=== PATIENT | female | born 1980 | race Caucasian/White ===

== ENCOUNTER → 2017-06-03 10:01 | Outpatient (CLI) | payer OTHER, SELFPAY ==
[2016-11-15 07:44] VITALS: BMI 22.4
[2016-11-15 14:00] VITALS: BP 114/58
[2017-06-03 12:26] LABS: Progesterone Level 39.08 ng/mL (See Comment)
== END ==
PROVIDERS: Visit Provider Obstetrics & Gynecology
DX: N92.6 Irregular menstruation, unspecified (principal)
CPT/HCPCS: 36415; 84144

== ENCOUNTER → 2017-06-29 14:57 | Outpatient (CLI) | payer OTHER, SELFPAY ==
[2017-06-29 16:31] LABS: Progesterone Level 4.31 ng/mL (See Comment)
== END ==
PROVIDERS: Visit Provider Obstetrics & Gynecology
DX: N92.6 Irregular menstruation, unspecified (principal)
CPT/HCPCS: 36415; 84144

== ENCOUNTER → 2017-06-30 18:39 | Outpatient (CLI) | payer OTHER, SELFPAY ==
--- NOTE | 2017-06-30 19:02 | US_ITS ---
STUDY: ULTRASOUND OF THE FEMALE PELVIS - COMPLETE REASON FOR EXAM: Female, 36 years old. Irregular menses. History of endometriosis. LMP: June 29, 2017. TECHNIQUE: Transabdominal and Transvaginal TECHNICAL QUALITY: Adequate. COMPARISON: None. FINDINGS: The uterus is anteverted and is in a midline position. The uterus measures 8.1 cm x 5.3 cm x 4.1 cm. There there are nabothian cysts of the cervix. The endometrium measures 7.0 mm in thickness, and is hyperechoic. There is no demonstrated endometrial mass. There is no demonstrated myometrial mass. I.U.D. - The patient does not have an I.U.D. The right ovary is visualized. The right ovary measures 4.6 cm x 3.8 cm x 3.6 cm. There is a 3.6 cm x 2.3 cm x 2.5 cm complex cystic mass in the right adnexal region. Septations and low-level echoes are seen within it. This may represent an endometrioma. There is no visualized right adnexal mass or complex lesion. There is normal arterial and normal venous vascularity. The left ovary is visualized. The left ovary measures 4.8 cm x 3.4 cm x 2.4 cm. There is a 1.4 cm x 1.4 cm x 1.2 cm simple cyst. There is no visualized left adnexal mass or complex lesion. There is normal arterial and normal venous vascularity. There is minimal fluid in the cul-de-sac. Polycystic ovary disease: No. US/Pelvic (Non ) IMPRESSION: 3.6 cm x 3.3 cm x 2.5 cm complex cystic mass in the right ovary as described. Endometrioma should be ruled out. Electronically Signed: Ritesh Douglas MD at 9:31 EST Tel [phone], Service support ,
--- NOTE | 2017-06-30 19:27 | US_ITS ---
STUDY: ULTRASOUND OF THE FEMALE PELVIS - COMPLETE REASON FOR EXAM: Female, 36 years old. Irregular menses. History of endometriosis. LMP: June 29, 2017. TECHNIQUE: Transabdominal and Transvaginal TECHNICAL QUALITY: Adequate. COMPARISON: None. FINDINGS: The uterus is anteverted and is in a midline position. The uterus measures 8.1 cm x 5.3 cm x 4.1 cm. There there are nabothian cysts of the cervix. The endometrium measures 7.0 mm in thickness, and is hyperechoic. There is no demonstrated endometrial mass. There is no demonstrated myometrial mass. I.U.D. - The patient does not have an I.U.D. The right ovary is visualized. The right ovary measures 4.6 cm x 3.8 cm x 3.6 cm. There is a 3.6 cm x 2.3 cm x 2.5 cm complex cystic mass in the right adnexal region. Septations and low-level echoes are seen within it. This may represent an endometrioma. There is no visualized right adnexal mass or complex lesion. There is normal arterial and normal venous vascularity. The left ovary is visualized. The left ovary measures 4.8 cm x 3.4 cm x 2.4 cm. There is a 1.4 cm x 1.4 cm x 1.2 cm simple cyst. There is no visualized left adnexal mass or complex lesion. There is normal arterial and normal venous vascularity. There is minimal fluid in the cul-de-sac. Polycystic ovary disease: No. US/Transvaginal Non- IMPRESSION: 3.6 cm x 3.3 cm x 2.5 cm complex cystic mass in the right ovary as described. Endometrioma should be ruled out. Electronically Signed: Ritesh Douglas MD at 9:31 EST Tel [phone], Service support ,
[2017-06-30 19:45] LABS: hCG Titer Quant., Serum < 1 mIU/mL (<9 non-preg)
== END ==
PROVIDERS: Family Provider Family Medicine; PCP Family Medicine; Visit Provider Obstetrics & Gynecology
DX: N83.201 Unspecified ovarian cyst, right side (principal); N92.6 Irregular menstruation, unspecified
CPT/HCPCS: 76830; 76856; 84702; 93976

== ENCOUNTER → 2017-07-25 18:27 | Outpatient (CLI) | payer OTHER, SELFPAY ==
--- NOTE | 2017-07-25 18:30 | US_ITS ---
STUDY: ULTRASOUND OF THE FEMALE PELVIS - COMPLETE REASON FOR EXAM: Female, 36 years old. Right ovary cyst LMP: 07/22/2017 TECHNIQUE: Transabdominal and Transvaginal TECHNICAL QUALITY: Adequate. COMPARISON: 06/30/2017 FINDINGS: The uterus is anteverted and is in a midline position. The uterus measures 7.4 x 5.9 x 3.7 cm. There is a Nabothian cyst of the cervix. The endometrium measures 4 mm in thickness, and is hyperechoic. There is no demonstrated endometrial mass. There is no demonstrated myometrial mass. I.U.D. - The patient does not have an I.U.D. The right ovary is visualized. The right ovary measures 4.9 x 3.8 x 2.9 cm. Stable complex cyst measuring 3.6 x 2.8 x 1.7 cm. There is no visualized right adnexal mass or complex lesion. There is normal arterial and normal venous vascularity. The left ovary is visualized. The left ovary measures 3.4 x 2.3 x 1.9 cm. Stable simple cyst measuring 1.8 x 1.3 x 1.2 cm. There is no visualized left adnexal mass or complex lesion. There is normal arterial and normal venous vascularity. Mild free pelvic fluid. The pre void volume of the bladder was 276 ml. The post void volume of the bladder was ml. Polycystic ovary disease: No. US/Pelvic (Non ) IMPRESSION: Stable complex right ovary cyst measuring up to 3.6 cm. Stable simple left ovary cyst measuring up to 1.8 cm. Mild free pelvic fluid. Electronically Signed: Marquise Maya MD at 5:14 EDT Tel , Service support ,
--- NOTE | 2017-07-25 18:40 | US_ITS ---
STUDY: ULTRASOUND OF THE FEMALE PELVIS - COMPLETE REASON FOR EXAM: Female, 36 years old. Right ovary cyst LMP: 07/22/2017 TECHNIQUE: Transabdominal and Transvaginal TECHNICAL QUALITY: Adequate. COMPARISON: 06/30/2017 FINDINGS: The uterus is anteverted and is in a midline position. The uterus measures 7.4 x 5.9 x 3.7 cm. There is a Nabothian cyst of the cervix. The endometrium measures 4 mm in thickness, and is hyperechoic. There is no demonstrated endometrial mass. There is no demonstrated myometrial mass. I.U.D. - The patient does not have an I.U.D. The right ovary is visualized. The right ovary measures 4.9 x 3.8 x 2.9 cm. Stable complex cyst measuring 3.6 x 2.8 x 1.7 cm. There is no visualized right adnexal mass or complex lesion. There is normal arterial and normal venous vascularity. The left ovary is visualized. The left ovary measures 3.4 x 2.3 x 1.9 cm. Stable simple cyst measuring 1.8 x 1.3 x 1.2 cm. There is no visualized left adnexal mass or complex lesion. There is normal arterial and normal venous vascularity. Mild free pelvic fluid. The pre void volume of the bladder was 276 ml. The post void volume of the bladder was ml. Polycystic ovary disease: No. US/Transvaginal Non- IMPRESSION: Stable complex right ovary cyst measuring up to 3.6 cm. Stable simple left ovary cyst measuring up to 1.8 cm. Mild free pelvic fluid. Electronically Signed: Marquise Maya MD at 5:14 EDT Tel , Service support ,
== END ==
PROVIDERS: Family Provider Family Medicine; PCP Family Medicine; Visit Provider Obstetrics & Gynecology
DX: N83.201 Unspecified ovarian cyst, right side (principal); N83.292 Other ovarian cyst, left side
CPT/HCPCS: 76830; 76856; 93976

== ENCOUNTER → 2017-08-23 16:36 | Outpatient (CLI) | payer OTHER, SELFPAY ==
--- NOTE | 2017-08-23 16:45 | US_ITS ---
STUDY: ULTRASOUND OF THE FEMALE PELVIS - COMPLETE REASON FOR EXAM: Female, 37 years old. Ovarian cyst TECHNIQUE: Transvaginal TECHNICAL QUALITY: Adequate. COMPARISON: 07/25/2017 FINDINGS: The uterus is anteverted and is in a midline position. The uterus measures 6.7 x 5.5 x 4.1 cm. Normal uterine cervix. The endometrium measures 5 mm in thickness, and is hyperechoic. There is no demonstrated endometrial mass. There is no demonstrated myometrial mass. The right ovary is visualized. The right ovary measures 4.7 x 4.0 x 3.2 cm. There is a complex cyst in the right ovary which measures 3.5 x 2.7 x 2.3 cm. This is not significantly changed when compared with the prior exam (previously 3.6 x 2.8 x 1.7 cm). There is no visualized right adnexal mass or complex lesion. There is normal arterial and normal venous vascularity. The left ovary is visualized. The left ovary measures 3.5 x 1.8 x 1.1 cm. There is a subcentimeter simple cyst in the left ovary which is decreased in size when compared with the prior exam. There is no visualized left adnexal mass or complex lesion. There is normal arterial and normal venous vascularity. There is a small amount of fluid in the cul-de-sac. US/Transvaginal Non- IMPRESSION: No significant change in the previously seen complex right ovarian cyst. Continued follow-up or further evaluation with MRI is recommended. Subcentimeter simple cyst in the left ovary which is decreased in size when compared with the prior exam. Small amount of pelvic free fluid. Electronically Signed: Faisal Mast, at 17:27 EDT Tel , Service support ,
== END ==
PROVIDERS: Family Provider Family Medicine; PCP Family Medicine; Visit Provider Obstetrics & Gynecology
DX: N83.292 Other ovarian cyst, left side (principal); N83.291 Other ovarian cyst, right side
CPT/HCPCS: 76830; 93976

== ENCOUNTER → 2017-09-22 14:19 | Outpatient (CLI) | payer OTHER, SELFPAY ==
[2017-09-22 16:13] LABS: hCG Titer Quant., Serum < 1 mIU/mL (<9 non-preg)
[2017-09-22 16:18] LABS: Estradiol 33.9 pg/mL; Free T3 2.6 pg/mL (2.18-3.98); T4 Free Direct 0.97 ng/dL (0.76-1.46); Thyroid Stim Hormone (TSH) 1.74 uIU/mL (0.358-3.74)
[2017-09-23 12:16] LABS: Progesterone Level 1.08 ng/mL (See Comment)
== END ==
PROVIDERS: Visit Provider Obstetrics & Gynecology
DX: N92.5 Other specified irregular menstruation (principal)
CPT/HCPCS: 36415; 82670; 84144; 84439; 84443; 84481; 84702

== ENCOUNTER → 2017-10-13 10:20 | Outpatient (CLI) | payer OTHER, SELFPAY ==
[2017-10-14 10:04] LABS: Progesterone Level 18.47 ng/mL (See Comment)
== END ==
PROVIDERS: Visit Provider Obstetrics & Gynecology
DX: N97.0 Female infertility associated with anovulation (principal)
CPT/HCPCS: 36415; 84144

== ENCOUNTER → 2017-11-10 10:11 | Outpatient (CLI) | payer OTHER, SELFPAY ==
[2017-11-11 08:27] LABS: Progesterone Level 16.93 ng/mL (See Comment)
== END ==
PROVIDERS: Visit Provider Obstetrics & Gynecology
DX: N97.0 Female infertility associated with anovulation (principal)
CPT/HCPCS: 36415; 84144

== ENCOUNTER → 2017-11-22 14:03 | Outpatient (CLI) | payer OTHER, SELFPAY | PROVIDERS: Visit Provider Obstetrics & Gynecology | DX: N39.0 Urinary tract infection, site not specified (principal) | CPT/HCPCS: 87086; 87088 ==

== ENCOUNTER → 2017-12-10 14:18 | Outpatient (CLI) | payer OTHER, SELFPAY ==
[2017-12-12 09:31] LABS: Progesterone Level 9.12 ng/mL (See Comment)
== END ==
PROVIDERS: Family Provider Family Medicine; PCP Family Medicine; Visit Provider Obstetrics & Gynecology
DX: N97.0 Female infertility associated with anovulation (principal)
CPT/HCPCS: 36415; 84144

== ENCOUNTER → 2018-01-12 14:47 | Outpatient (CLI) | payer OTHER, SELFPAY ==
[2018-01-12 16:12] LABS: Estradiol 45.7 pg/mL
[2018-01-16 10:49] LABS: DHEA Sulfate 163.8 ug/dL (57.3-279.2)
== END ==
PROVIDERS: Family Provider Family Medicine; PCP Family Medicine; Visit Provider Obstetrics & Gynecology Reproductive Endocrinology
DX: N91.4 Secondary oligomenorrhea (principal); E22.1 Hyperprolactinemia
CPT/HCPCS: 36415; 82627; 82670; 83001; 82626

== ENCOUNTER → 2018-02-16 15:22 | Outpatient (CLI) | payer OTHER, SELFPAY ==
--- OUTSIDE RECORDS SUMMARY | 2018-02-15 16:55 | XMS RPT_ITS ---
:1980 Author Organization [place] Support Name Relationship Address Phone Nicolas Randle Unavailable Unavailable + WeygracheltKvngSelene Unavailable Unavailable + Nicolas Randle Unavailable Unavailable + Weygandt, Selene Unavailable Unavailable + JON RANDLE Unavailable [address] + [place] [address] 'S RESTAURANT Unavailable [address] + [place] [address] WEYGRACHELT, SELENE Unavailable Unavailable + [place] [address] JON RANDLE Unavailable [address] + [place] [address] 'S RESTAURANT Unavailable [address] + [place] [address] WEYGRACHELT, SELENE Unavailable Unavailable + [place] [address] JON RANDLE Unavailable [address] + [place] [address] 'S RESTAURANT Unavailable [address] + [place] [address] WEYGRACHELT, SELENE Unavailable Unavailable + [place] [address] JON RANDLE Unavailable [address] + [place] [address] 'S RESTAURANT Unavailable [address] + [place] [address] MAURICIOYGRACHELT, SELENE Unavailable Unavailable + [place] [address] JON RANDLE Unavailable [address] + [place] [address] [employer] Unavailable [address] + [place] [address] WEJAVIERT, SELENE Unavailable Unavailable + [place] [address] JON RANDLE Unavailable [address] + [place] [address] [employer] Unavailable [address] + [place] [address] WEYGRACHELT, SELENE Unavailable Unavailable + [place] [address] JON RANDLE Unavailable [address] + [place] [address] [employer] Unavailable [address] + [place] [address] ESCOBART, SELENE Unavailable Unavailable + [place] [address] JON RANDLE Unavailable [address] + [place] [address] [employer] Unavailable [address] + [place] [address] ESCOBART SELENE Unavailable Unavailable + [place] [address] JON RANDLE Unavailable [address] + [place] [address] [employer] Unavailable [address] + [place] [address] ESCOBART SELENE Unavailable . + [place] [address] JON RANDLE Unavailable [address] + [place] [address] [employer] Unavailable [address] + [place] [address] ESCOBART SELENE Unavailable . + [place] [address] JON RANDLE Unavailable [address] + [place] [address] [employer] Unavailable [address] + [place] [address] ESCOBART SELENE Unavailable . + [place] [address] JON RANDLE Unavailable [address] + [place] [address] 'S RESTAURANT Unavailable [address] + [place] [address] WEYGANDT, SELENE Unavailable . + [place] [address] JON RANDLE Unavailable [address] + [place] [address] [employer] Unavailable [address] + [place] [address] WEYGANDT, SEELNE Unavailable . + [place] [address] Care Team Providers Name Role Phone Steven Lee Attending Unavailable PROVIDER, UNKNOWN Referring Unavailable Malys, Amita Primary Care Unavailable Lee, Steven Attending Unavailable PROVIDER, UNKNOWN Referring Unavailable Malys, Maita Primary Care Unavailable Malys, Amita Attending Unavailable Malys, Amita Primary Care Unavailable Shriner, Luz Elena Attending Unavailable Shriner, Luz Elena Attending Unavailable Shriner, Luz Elena Attending Unavailable Malys, Amita Primary Care Unavailable Shriner, Luz Elena Attending Unavailable Malys, Amita Primary Care Unavailable Shriner, Luz Elena Attending Unavailable Shriner, Luz Elena Referring Unavailable Malys, Amita Primary Care Unavailable Shriner, Luz Elena Attending Unavailable Shriner, Luz Elena Referring Unavailable Malys, Amita Primary Care Unavailable Shriner, Luz Elena Attending Unavailable Shriner, Luz Elena Attending Unavailable Shriner, Luz Elena Attending Unavailable Shriner, Luz Elena Attending Unavailable Shriner, Luz Elena Attending Unavailable Malys, Amita Primary Care Unavailable LEE, STEVEN Attending Unavailable LEE, STEVEN Referring Unavailable Malys, Amita Primary Care Unavailable PROBLEMS PROBLEMS DATE TYPE CONDITION / CODE ATTENDING STATUS SOURCE 01/26/2018 Admitting Endometriosis of Garret, Active [facility] pelvic peritoneum / Steven System N80.3(ICD-10) Repository 01/26/2018 Admitting Unspecified ovarian Lee, Active [facility] Diagnosis cyst, right side / Steven [facility] N83.201(ICD-10) Repository 01/26/2018 Admitting Hypothyroidism, Garret, Active [facility] Diagnosis unspecified / [facility] E03.9(ICD-10) Repository 01/26/2018 Admitting Unspecified asthma, Lee, Active [facility] Diagnosis uncomplicated / [facility] System J45.909(ICD-10) Repository 01/26/2018 Admitting Personal history of Lee, Active [facility] Diagnosis methicillin resis [facility] System staph infection / Repository Z86.14(ICD-10) 01/12/2018 Unknown N91.4 - Secondary LEE, Active [facility] oligomenorrhea / [facility]EVEN Community N91.4(ICD-10) Hospital Repository 11/22/2017 Unknown N39.0 - Urinary Shrmarley, Luz Elena Active [place] tract infection, Community site not specified / Hospital N39.0(ICD-10) Repository 11/10/2017 Unknown 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, 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 Community associated with Hospital anovulation / Repository N97.0(ICD-10) 10/13/2017 Unknown N97.9 - Female Shriner, 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, Community unspecified / Hospital N97.9(ICD-10) Repository 09/22/2017 Unknown N92.5 - Other Shriner, Luz Elena Active [place] specified irregular Community menstruation / Hospital N92.5(ICD-10) Repository 07/25/2017 Unknown N83.201 - Shriner, Luz Elena Active [facility] Unspecified ovarian Community cyst, right side / Hospital N83.201(ICD-10) Repository 06/29/2017 Unknown N92.6 - Irregular Shriner, Luz Elena Active [facility] menstruation, Community unspecified / Hospital N92.6(ICD-10) Repository 02/24/2017 Unknown HYPOTHYROIDISM, Malys, Amita Active [facility] UNSPECIFIED / Community E03.9(ICD-10) Hospital Repository 02/24/2017 Unknown ENCOUNTER FOR Malys, Amita Active [facility] [facility] Community LEVEL MONITORING / Hospital Z51.81(ICD-10) Repository PROCEDURES PROCEDURES No Procedure Records FoundRESULTS RESULTS OP NOTE Observed: 01/26/2018 Status: F [facility] REPOS[facility] PATIENT: DARLINE RANDLE BMEDICAL RECORD #: [id number] DATE: 01/26/2018SURGERY DATE: 01/26/2018ACCOUNT #: [id number] OF : 1980AGE: 37ADMITTING PHYSICIAN: Steven Lee M.D.ATTENDING PHYSICIAN: Steven Lee M.D.DICTATING PHYSICIAN: Viktoriya Centeno MD OPERATIVE RECORDProcedure:1. DIAGNOSTIC LAPAROSCOPY.2. FULGURATION OF ENDOMETRIOSIS AND CHROMOTUBATION.Preoperative Diagnoses:1. Pelvic pain.2. Endometriosis.Postoperative Diagnoses:1. Pelvic pain.2. Endometriosis.Anesthesia: General, ETA, and TAP block.Airline Mechanic: Viktoriya Centeno M.D.Estimated Blood Loss: 10 cc.Intravenous Fluids: 1200 cc crystalloid.Urine: 100 cc.Complications: None apparent.Specimens Removed: None.Findings: Included endometriosis was noted on the bilateraluterosacral ligaments and then the posterior and anterior cul-de-sac.There were right pelvic adhesions noted from the right pelvic sidewallto the right ovary. A right ovarian cyst was also noted, which wasinstantly ruptured. An endometriosis was noted as well on the rightand left pelvic sidewall adjacent to the ureters.Indication for Procedure: This is a 37-year-old female, who presentsfor diagnostic laparoscopy with possible fulguration of endometriosis.The patient has undergone a laparoscopic procedure in 2016, whichshowed evidence of endometriosis. The patient had recurrent pelvicpain and likely recurrence of her endometriosis and the decision wasmade to proceed with a diagnostic laparoscopy and possible surgicalmanagement. Risks, benefits, and alternatives of the procedure werediscussed with the patient including, but not limited to risk ofinjury to surrounding structures, risk of infection, possible need forblood transfusion, risk of hemorrhage as well as the risk of possibleuterine perforation with uterine manipulation. The patient voicedunderstanding and agreed to proceed. Consent was signed and allquestions were answered.Description of Procedure: The patient was taken to the operating roomwith IV fluids running. General anesthesia was administered withoutdifficulty and found to be adequate. The patient was placed in thedorsal lithotomy position with legs in Yellofin stirrups. The patientwas prepped and draped in the normal sterile fashion and a time-outwas performed. Sterile indicators were good. An exam underanesthesia revealed a normal anteverted uterus. Speculum was placedinto the posterior aspect of the vagina. A right angle was placed inthe anterior aspect to better visualize the cervix. The single-toothtenaculum was used to grasp the anterior lip of the cervix. Theuterus sounded to 7 cm. The uterine manipulator was then placed and aFoley catheter was placed. All other instruments were then removedfrom the vagina. Attention was then turned to the abdomen for thelaparoscopic portion of the procedure. Two towel clamps were used toelevate the umbilicus. A small 5 mm umbilical incision was madetransversely. The Veress needle was then inserted and attached toinsufflation and it was determined that the abdominal cavity wasentered. The abdomen was then insufflated with CO2 gas untilpneumoperitoneum was placed. A 5 mm bladed trocar was then insertedthrough the umbilical incision and the camera was inserted.Inspection of the abdominal cavity revealed no evidence of visceral orvascular injury. Attention was then turned to the right and leftlower quadrants and two 5 mm ports were placed in each quadrant underdirect visualization. The pelvis was then inspected as previouslynoted in the findings. Endometriosis was noted in the anterior andposterior cul-de-sacs. Right pelvic adhesions were noted from theright pelvic sidewall to the right ovary. The right ovarian cyst wasalso noted, which was incidentally ruptured during the procedure.There was also noted to be endometriosis overlying the right and leftpelvic sidewalls adjacent to the ureters. The bipolar Kleppingerdevice was then used to fulgurate all areas of endometriosis. Thepelvis was then sufficiently irrigated and closer inspection revealedthat all evidence of endometriosis had been sufficiently fulgurated.The chromotubation was then performed, which showed bilateral spillfrom both fallopian tubes. This concluded the laparoscopic portion ofprocedure. All ports and instruments were removed from the abdominalcavity. All instruments were then removed from the vagina andbladder. The port sites were closed with 4-0 Vicryl and dressed withSteris and Tegaderm. All instruments, sponge, and needle counts werecorrect x2. The patient was taken to the recovery room in stablecondition and was discharged home according to PACU protocol. Pablo follow up in the office with Dr. Lee in 1 week to review thefindings of the procedure. Dr. Lee was present for the entireportion of the procedure.Disk[employer] Job ID: [id number] by Nilton Rodgers M.D.DOD:01/26/2018 01:39 P NJB/dskDOT:01/26/2018 02:24 PJob Number: [id number] Number: [id number]: MD Steven Rodgers M.D. [address] [place] [id number] HCG,URINE QUAL Collected: 01/26/2018 Status: F Source: [employer] [facility] 10:57 AM SYSTEM REPOSITORY TYPE CODE TESTS RESULT OUT OF REFERENCE UNITS RANGE LAB HCGUR Negative NA Negative HCG,Urine Qual Result Comment: is the most common reason for HCG in urine, although choriocarcinoma, hydatidiform mole, and certain nontropho- blastic malignancies also result in detectable urinary HCG levels. Sensitivity = 20mIU/mL. Performed By: #### HCGUR #### [facility] [address] [place] [id number] HEMOGRAM Collected: 01/16/2018 Status: F Source: [employer] 10:32 AM SYSTEM REPOSITORY TYPE CODE TESTS RESULT OUT OF RANGE REFERENCE UNITS LAB IWBC Normal 3.6-10.7 10*3/uL WBC 8.7 LAB RBC Normal 3.80-5.20 10*6/uL RBC 4.95 LAB HGB Normal 11.7-16.0 g/dL Hemoglobin 14.8 LAB HCT Normal 35.0-47.0 % Hematocrit 42.9 LAB MCV Normal 79.0-98.0 fL MCV 86.6 LAB MCH Normal 26.0-34.0 pg MCH 29.8 LAB MCHC Normal 32.0-36.0 % MCHC 34.5 LAB RDW Normal 11.5-14.5 % RDW 14.1 LAB PLT Normal 140-440 10*3/uL Platelet 211 LAB MPV Normal 7.4-10.4 fL MPV 8.1 Performed By: #### HEMOG, TSH5 #### [facility] [address] [place] [id number] THYROID STIM. Collected: 01/16/2018 Status: F Source: [employer] [facility] 10:32 AM SYSTEM REPOSITORY TYPE CODE TESTS RESULT OUT OF RANGE REFERENCE UNITS LAB TSH5 Normal 0.465-4.680 u[IU]/mL Thyroid 1.914 Stim. Hormone Performed By: #### HEMOG, TSH5 #### [address] [address] FOLLICLE STIMULATING Collected: 01/12/2018 Status: F Source: [place] HORMONE 3:03 PM [facility] REPOSITORY TYPE CODE TESTS RESULT OUT OF RANGE REFERENCE UNITS LAB L3100.5125 Normal mIU/mL FSH 5.0 Result Comment: NORMAL REFERENCE RANGES FEMALE FOLLICULAR 2.3 - 12.6 mIU/mL MID-CYCLE PEAK 5.2 - 17.5 mIU/mL LUTEAL 1.7 - 12.9 mIU/mL POST-MENOPAUSAL ON MHT 5.9 - 72.8 mIU/mL NOT ON MHT 12.7 - 132.2 mlU/mL MALE 0.7 - 10.8 mIU/mL NEW TEST METHOD AND REFERENCE RANGES SEPTEMBER 13, 2011 Performed By: #### L3100.5125, L3300.1750 #### [facility] [address] [place], [place], [id number] ESTRADIOL Collected: 01/12/2018 Status: F Source: [place] 3:03 PM [facility] REPOSITORY TYPE CODE TESTS RESULT OUT OF RANGE REFERENCE UNITS LAB L3300.1750 Normal pg/mL ESTRADIOL 45.7 Result Comment: NORMAL REFERENCE RANGES FEMALE FOLLICULAR 21.4 - 164.8 pg/mL MID-CYCLE PEAK 49.9 - 367.2 pg/mL LUTEAL 40.2 - 259.0 pg/mL POST-MENOPAUSAL ON MHT <11.0 - 462.1 pg/mL NOT ON MHT <11.0 - 58.3 pg/mL MALE <11.0 - 52.5 pg/mL NOTE: [facility] HAS CONFIRMED THE DRUG FULVETRANT (FASLODEX) MAY CAUSE FALSELY ELEVATED ESTRADIOL RESULTS WHEN USING THIS TEST METHOD. IF PATIENT IS TAKING FULVESTRANT AN ALTERNATIVE METHOD SHOULD BE USED TO DETERMINE ESTRADIOL CONCENTRATION. Performed By: #### L3100.5125, L3300.1750 #### [facility] [address] [place], [place], [address] DHEA SULFATE Collected: 01/12/2018 Status: F Source: [place] 3:03 PM [facility] REPOSITORY Order Comment: Has Patient had Radioactive Injection for X-ray?: N TYPE CODE TESTS RESULT OUT OF RANGE REFERENCE UNITS LAB L3300.1500 Normal 57.3-279.2 ug/dL DHEA 163.8 SULF 4020 Result Comment: Performed at: [facility] [id number] Career Development Director: Addy Lam PhD, Phone: [phone] Performed By: #### L3300.1500 #### [facility] (refer to report for specific site) refer to report for address and phone number PROGESTERONE LEVEL Collected: 12/10/2017 Status: F Source: [place] 2:28 PM [facility] REPOSITORY TYPE CODE TESTS RESULT OUT OF REFERENCE UNITS RANGE LAB L509.4001 Normal See Comment ng/mL Progesterone 9.12 Result Comment: Progesterone Reference Table: UNITS Female: Follicular 0.15 - 1.40 ng/mL Luteal 3.34 - 25.56 ng/mL Mid-luteal 4.44 - 28.03 ng/mL Postmenopausal 0.0 - 0.73 ng/mL : 1st Trimester 11.22 - 90.00 ng/mL 2nd Trimester 25.55 - 89.40 ng/mL 3rd Trimester 48.40 -422.50 ng/mL Performed By: #### L509.4001 #### [facility] [address] [place], [place], [address] Observed: 11/22/2017 Status: F Source: [place] CULTURE, URINE 11:06 AM [facility] REPOSITORY Urine CultureORGANISM 1: Mixed Gram Pos AND Gram Neg OrgColony Count 1000-10,000MIX CULTURE Mixed contaminants. Submit a new specimen if indicated. Performed By: #### M100.0650 ####[facility] [address] [place], [address] PROGESTERONE LEVEL Collected: 11/10/2017 Status: F Source: [place] 10:13 AM [facility] REPOSITORY Order Comment: CYCLE DAY 22 TYPE CODE TESTS RESULT OUT OF REFERENCE UNITS RANGE LAB L509.4001 Normal See Comment ng/mL Progesterone 16.93 Result Comment: Progesterone Reference Table: UNITS Female: Follicular 0.15 - 1.40 ng/mL Luteal 3.34 - 25.56 ng/mL Mid-luteal 4.44 - 28.03 ng/mL Postmenopausal 0.0 - 0.73 ng/mL : 1st Trimester 11.22 - 90.00 ng/mL 2nd Trimester 25.55 - 89.40 ng/mL 3rd Trimester 48.40 -422.50 ng/mL Performed By: #### L509.4001 #### [facility] [address] [place], [address] PROGESTERONE LEVEL Collected: 10/13/2017 Status: F Source: [place] 10:24 AM [facility] REPOSITORY TYPE CODE TESTS RESULT OUT OF REFERENCE UNITS RANGE LAB L509.4001 Normal See Comment ng/mL Progesterone 18.47 Result Comment: Progesterone Reference Table: UNITS Female: Follicular 0.15 - 1.40 ng/mL Luteal 3.34 - 25.56 ng/mL Mid-luteal 4.44 - 28.03 ng/mL Postmenopausal 0.0 - 0.73 ng/mL : 1st Trimester 11.22 - 90.00 ng/mL 2nd Trimester 25.55 - 89.40 ng/mL 3rd Trimester 48.40 -422.50 ng/mL Performed By: #### L509.4001 #### [facility] [address] [place], [address] HCG TITER QUANT., Collected: 09/22/2017 Status: F Source: [facility] SERUM 2:35 PM [facility] REPOSITORY TYPE CODE TESTS RESULT OUT OF RANGE REFERENCE UNITS LAB L700.8000 Normal <9 non-preg mIU/mL HCG < 1 QUANT. Performed By: #### L700.8000 #### [facility] [address] [place], [address] FREE T3 Collected: 09/22/2017 Status: F Source: [place] 2:35 PM [facility] REPOSITORY Order Comment: TODAY IS CYCLE DAY 33 TYPE CODE TESTS RESULT OUT OF RANGE REFERENCE UNITS LAB L501.33963 Normal 2.18-3.98 pg/mL FREE 2.6 T3 Performed By: #### L501.93221, L501.9520, L506.0400, L3300.1750 #### [facility] [address] [place], [address] THYROID STIM HORMONE Collected: 09/22/2017 Status: F Source: [place] (TSH) 2:35 PM [facility] REPOSITORY Order Comment: TODAY IS CYCLE DAY 33 TYPE CODE TESTS RESULT OUT OF RANGE REFERENCE UNITS LAB L501.9520 Normal 0.358-3.74 uIU/mL TSH 1.74 Performed By: #### L501.91058, L501.9520, L506.0400, L3300.1750 #### [facility] [address] [place], [address] T4 FREE DIRECT Collected: 09/22/2017 Status: F Source: [place] 2:35 PM [facility] REPOSITORY Order Comment: TODAY IS CYCLE DAY 33 TYPE CODE TESTS RESULT OUT OF RANGE REFERENCE UNITS LAB L506.0400 Normal 0.76-1.46 ng/dL T4 FREE 0.97 DIRECT Performed By: #### L501.06446, L501.9520, L506.0400, L3300.1750 #### [facility] [address] [place], [place], [address] ESTRADIOL Collected: 09/22/2017 Status: F Source: [place] 2:35 PM [facility] REPOSITORY Order Comment: TODAY IS CYCLE DAY 33 TYPE CODE TESTS RESULT OUT OF RANGE REFERENCE UNITS LAB L3300.1750 Normal pg/mL ESTRADIOL 33.9 Result Comment: NORMAL REFERENCE RANGES FEMALE FOLLICULAR 21.4 - 164.8 pg/mL MID-CYCLE PEAK 49.9 - 367.2 pg/mL LUTEAL 40.2 - 259.0 pg/mL POST-MENOPAUSAL ON MHT <11.0 - 462.1 pg/mL NOT ON MHT <11.0 - 58.3 pg/mL MALE <11.0 - 52.5 pg/mL NOTE: [facility] HAS CONFIRMED THE DRUG FULVETRANT (FASLODEX) MAY CAUSE FALSELY ELEVATED ESTRADIOL RESULTS WHEN USING THIS TEST METHOD. IF PATIENT IS TAKING FULVESTRANT AN ALTERNATIVE METHOD SHOULD BE USED TO DETERMINE ESTRADIOL CONCENTRATION. Performed By: #### L501.99479, L501.9520, L506.0400, L3300.1750 #### [facility] [address] [place], [place], [address] PROGESTERONE LEVEL Collected: 09/22/2017 Status: F Source: [facility] 2:35 PM [facility] REPOSITORY TYPE CODE TESTS RESULT OUT OF REFERENCE UNITS RANGE LAB L509.4001 Normal See Comment ng/mL Progesterone 1.08 Result Comment: Progesterone Reference Table: UNITS Female: Follicular 0.15 - 1.40 ng/mL Luteal 3.34 - 25.56 ng/mL Mid-luteal 4.44 - 28.03 ng/mL Postmenopausal 0.0 - 0.73 ng/mL : 1st Trimester 11.22 - 90.00 ng/mL 2nd Trimester 25.55 - 89.40 ng/mL 3rd Trimester 48.40 -422.50 ng/mL Performed By: #### L509.4001 #### [facility] [address] [place], [address] TRANSVAGINAL Observed: 08/23/2017 Status: F Source: [place] NON- 4:45 PM [facility] REPOSITORY [facility] [id number] [place], [place] [address]Rpnlcprhluyd Non-MR#: [id number] Acct: [id number]: DARLINE RANDLE Rep #: [id number]: 1980 F 37 From: Faisal Mast MDPCP: Amita Castle DO Status: REG CLIStudy: Transvaginal Non- Date of Exam: 08/23/17Exam# [id number] Ordering Dr: Luz Elena Charles MDSTUDY: ULTRASOUND OF THE FEMALE PELVIS - COMPLETEREASON FOR EXAM: Female, 37 years old. Ovarian cystTECHNIQUE: TransvaginalTECHNICAL QUALITY: Adequate.COMPARISON: 07/25/2017 FINDINGS:The uterus is anteverted and is in a midline position. The uterus measures6.7 x 5.5 x 4.1 cm. Normal uterine cervix. The endometrium measures 5 mmin thickness, and is hyperechoic. There is no demonstrated endometrialmass. There is no demonstrated myometrial mass.The right ovary is visualized. The right ovary measures 4.7 x 4.0 x 3.2cm. There is a complex cyst in the right ovary which measures 3.5 x 2.7 x2.3 cm. This is not significantly changed when compared with the priorexam (previously 3.6 x 2.8 x 1.7 cm). There is no visualized right adnexalmass or complex lesion. There is normal arterial and normal venousvascularity.The left ovary is visualized. The left ovary measures 3.5 x 1.8 x 1.1 cm.There is a subcentimeter simple cyst in the left ovary which is decreasedin size when compared with the prior exam. There is no visualized leftadnexal mass or complex lesion. There is normal arterial and normal venousvascularity.There is a small amount of fluid in the cul-de-sac. ORDER #: [id number] US/Transvaginal Non-IMPRESSION:No significant change in the previously seen complex right ovarian cyst.Continued follow-up or further evaluation with MRI is recommended.Subcentimeter simple cyst in the left ovary which is decreased in size whencompared with the prior exam.Small amount of pelvic free fluid.Electronically Signed:Faisal Mast, at 17:27 EDTTel , Service support , FM: Luz Elena Charles MD; Amita Castle DO Business Office Director:Signed TRANSVAGINAL Observed: 07/25/2017 Status: F Source: [facility] NON- 6:41 PM [facility] REPOSITORY [facility] [id number] [place], [place] [address]Mpommmmghqey Non-MR#: [id number] Acct: [id number]: DARLINE RANDLE Rep #: [id number]: 1980 F 36 From: Marquise Maya MDPCP: Amita Castle DO Status: REG CLIStudy: Transvaginal Non- Date of Exam: 07/25/17Exam# [id number] Ordering Dr: Luz Elena Charles MDSTUDY: ULTRASOUND OF THE FEMALE PELVIS - COMPLETEREASON FOR EXAM: Female, 36 years old. Right ovary cyst LMP: 07/22/2017TECHNIQUE: Transabdominal and TransvaginalTECHNICAL QUALITY: Adequate.COMPARISON: 06/30/2017 FINDINGS:The uterus is anteverted and is in a midline position. The uterus measures7.4 x 5.9 x 3.7 cm. There is a Nabothian cyst of the cervix. Theendometrium measures 4 mm in thickness, and is hyperechoic. There is nodemonstrated endometrial mass. There is no demonstrated myometrial mass.I.U.D. - The patient does not have an I.U.D.The right ovary is visualized. The right ovary measures 4.9 x 3.8 x 2.9cm. Stable complex cyst measuring 3.6 x 2.8 x 1.7 cm. There is novisualized right adnexal mass or complex lesion. There is normal arterialand normal venous vascularity.The left ovary is visualized. The left ovary measures 3.4 x 2.3 x 1.9 cm.Stable simple cyst measuring 1.8 x 1.3 x 1.2 cm. There is no visualizedleft adnexal mass or complex lesion. There is normal arterial and normalvenous vascularity.Mild free pelvic fluid.The pre void volume of the bladder was 276 ml. The post void volume of thebladder was ml.Polycystic ovary disease: No. ORDER #: [id number] US/Transvaginal Non-IMPRESSION:Stable complex right ovary cyst measuring up to 3.6 cm.Stable simple left ovary cyst measuring up to 1.8 cm.Mild free pelvic fluid.Electronically Signed:Marquise Maya MD at 5:14 EDTTel , Service support , OF: Luz Elena Charles MD; Amita Castle DO Business Office Director:Signed PELVIC (NON ) Observed: 07/25/2017 Status: F Source: ZOAR 6:30 PM [facility] REPOSITORY [facility] S[facility]THImaging [id number] EFRA BANEG[place] [address]Hwdgoc (Non )MR#: [id number] Acct: [id number]: DARLINE RANDLE Adriana Rep #: [id number]: 1980 F 36 From: Marquise Maya MDPCP: Amita Castle DO Status: REG CLIStudy: Pelvic (Non ) Date of Exam: 07/25/17Exam# [id number] Ordering Dr: Luz Elena Charles MDSTUDY: ULTRASOUND OF THE FEMALE PELVIS - COMPLETEREASON FOR EXAM: Female, 36 years old. Right ovary cyst LMP: 07/22/2017TECHNIQUE: Transabdominal and TransvaginalTECHNICAL QUALITY: Adequate.COMPARISON: 06/30/2017 FINDINGS:The uterus is anteverted and is in a midline position. The uterus measures7.4 x 5.9 x 3.7 cm. There is a Nabothian cyst of the cervix. Theendometrium measures 4 mm in thickness, and is hyperechoic. There is nodemonstrated endometrial mass. There is no demonstrated myometrial mass.I.U.D. - The patient does not have an I.U.D.The right ovary is visualized. The right ovary measures 4.9 x 3.8 x 2.9cm. Stable complex cyst measuring 3.6 x 2.8 x 1.7 cm. There is novisualized right adnexal mass or complex lesion. There is normal arterialand normal venous vascularity.The left ovary is visualized. The left ovary measures 3.4 x 2.3 x 1.9 cm.Stable simple cyst measuring 1.8 x 1.3 x 1.2 cm. There is no visualizedleft adnexal mass or complex lesion. There is normal arterial and normalvenous vascularity.Mild free pelvic fluid.The pre void volume of the bladder was 276 ml. The post void volume of thebladder was ml.Polycystic ovary disease: No. ORDER #: [id number] US/Pelvic (Non )IMPRESSION:Stable complex right ovary cyst measuring up to 3.6 cm.Stable simple left ovary cyst measuring up to 1.8 cm.Mild free pelvic fluid.Electronically Signed:Marquise Maya MD at 5:14 EDTTel , Service support , MA: Luz Elena Charles MD; Amita Castle DO Business Office Director:Signed TRANSVAGINAL Observed: 06/30/2017 Status: F Source: ZOAR NON- 7:27 PM [facility] [place] REPOSITORY [facility]Ima[facility] [id number] EFRA BANEGAS [place] [address]Bvexzkevetcd Non-MR#: [id number] Acct: [id number]: DARLINE RANDLE Rep #: [id number]: 1980 F 36 From: Ritesh Douglas MDPCP: Amita Castle DO Status: REG CLIStudy: Transvaginal Non- Date of Exam: 06/30/17Exam# [id number] Ordering Dr: Luz Elena Charles MDSTUDY: ULTRASOUND OF THE FEMALE PELVIS - COMPLETEREASON FOR EXAM: Female, 36 years old. Irregular menses. History ofendometriosis. LMP: June 29, 2017.TECHNIQUE: Transabdominal and TransvaginalTECHNICAL QUALITY: Adequate.COMPARISON: None. FINDINGS:The uterus is anteverted and is in a midline position. The uterus measures8.1 cm x 5.3 cm x 4.1 cm. There there are nabothian cysts of the cervix.The endometrium measures 7.0 mm in thickness, and is hyperechoic. There isno demonstrated endometrial mass. There is no demonstrated myometrialmass. I.U.D. - The patient does not have an I.U.D.The right ovary is visualized. The right ovary measures 4.6 cm x 3.8 cm x3.6 cm. There is a 3.6 cm x 2.3 cm x 2.5 cm complex cystic mass in theright adnexal region. Septations and low-level echoes are seen within it.This may represent an endometrioma. There is no visualized right adnexalmass or complex lesion. There is normal arterial and normal venousvascularity.The left ovary is visualized. The left ovary measures 4.8 cm x 3.4 cm x2.4 cm. There is a 1.4 cm x 1.4 cm x 1.2 cm simple cyst. There is novisualized left adnexal mass or complex lesion. There is normal arterialand normal venous vascularity.There is minimal fluid in the cul-de-sac.Polycystic ovary disease: No. ORDER #: [id number] US/Transvaginal Non-IMPRESSION:3.6 cm x 3.3 cm x 2.5 cm complex cystic mass in the right ovary asdescribed. Endometrioma should be ruled out.Electronically Signed:Ritesh Douglas MD at 9:31 ESTTel [phone], Service support , TT: Luz Elena Charles MD; Amita Castle DO Business Office Director:Signed HCG TITER QUANT., Collected: 06/30/2017 Status: F Source: ZOAR SERUM 7:10 PM [facility] [place] REPOSITORY TYPE CODE TESTS RESULT OUT OF RANGE REFERENCE UNITS LAB L700.8000 Normal <9 non-preg mIU/mL HCG < 1 QUANT. Performed By: #### L700.8000 #### [facility] [address] [place], [address] PELVIC (NON ) Observed: 06/30/2017 Status: F Source: ZOAR 7:02 PM [facility] REPOSITORY [facility]THImaging [id number] EFRA BANEG[place] [address]Nxzfbq (Non )MR#: [id number] Acct: [id number]: DARLINE RANDLE Rep #: [id number]: 1980 F 36 From: Ritesh Douglas MDPCP: Corrine Amita Status: REG CLIStudy: Pelvic (Non ) Date of Exam: 06/30/17Exam# [id number] Ordering Dr: Luz Elena Charles MDSTUDY: ULTRASOUND OF THE FEMALE PELVIS - COMPLETEREASON FOR EXAM: Female, 36 years old. Irregular menses. History ofendometriosis. LMP: June 29, 2017.TECHNIQUE: Transabdominal and TransvaginalTECHNICAL QUALITY: Adequate.COMPARISON: None. FINDINGS:The uterus is anteverted and is in a midline position. The uterus measures8.1 cm x 5.3 cm x 4.1 cm. There there are nabothian cysts of the cervix.The endometrium measures 7.0 mm in thickness, and is hyperechoic. There isno demonstrated endometrial mass. There is no demonstrated myometrialmass. I.U.D. - The patient does not have an I.U.D.The right ovary is visualized. The right ovary measures 4.6 cm x 3.8 cm x3.6 cm. There is a 3.6 cm x 2.3 cm x 2.5 cm complex cystic mass in theright adnexal region. Septations and low-level echoes are seen within it.This may represent an endometrioma. There is no visualized right adnexalmass or complex lesion. There is normal arterial and normal venousvascularity.The left ovary is visualized. The left ovary measures 4.8 cm x 3.4 cm x2.4 cm. There is a 1.4 cm x 1.4 cm x 1.2 cm simple cyst. There is novisualized left adnexal mass or complex lesion. There is normal arterialand normal venous vascularity.There is minimal fluid in the cul-de-sac.Polycystic ovary disease: No. ORDER #: [id number] US/Pelvic (Non )IMPRESSION:3.6 cm x 3.3 cm x 2.5 cm complex cystic mass in the right ovary asdescribed. Endometrioma should be ruled out.Electronically Signed:Ritesh Douglas MD at 9:31 ESTTel [phone], Service support , BU: Luz Elena Charles MD; Amita Castle DO Business Office Director:Signed PROGESTERONE LEVEL Collected: 06/29/2017 Status: F Source: TERRIE 3:01 PM [facility] REPOSITORY TYPE CODE TESTS RESULT OUT OF REFERENCE UNITS RANGE LAB L509.4001 Normal See Comment ng/mL Progesterone 4.31 Result Comment: Progesterone Reference Table: UNITS Female: Follicular 0.15 - 1.40 ng/mL Luteal 3.34 - 25.56 ng/mL Mid-luteal 4.44 - 28.03 ng/mL Postmenopausal 0.0 - 0.73 ng/mL : 1st Trimester 11.22 - 90.00 ng/mL 2nd Trimester 25.55 - 89.40 ng/mL 3rd Trimester 48.40 -422.50 ng/mL Performed By: #### L509.4001 #### [facility] [address] [place], [place], [id number] PROGESTERONE LEVEL Collected: 06/03/2017 Status: F Source: TERRIE 10:06 AM [facility] REPOSITORY TYPE CODE TESTS RESULT OUT OF REFERENCE UNITS RANGE LAB L509.4001 Normal See Comment ng/mL Progesterone 39.08 Result Comment: Progesterone Reference Table: UNITS Female: Follicular 0.15 - 1.40 ng/mL Luteal 3.34 - 25.56 ng/mL Mid-luteal 4.44 - 28.03 ng/mL Postmenopausal 0.0 - 0.73 ng/mL : 1st Trimester 11.22 - 90.00 ng/mL 2nd Trimester 25.55 - 89.40 ng/mL 3rd Trimester 48.40 -422.50 ng/mL Performed By: #### L509.4001 #### [facility] [address] [place], [address] ALLERGIES ALLERGIES DATE TYPE / CODE NAME / CODE REACTION SEVERITY SOURCE 11/12/2016 Drug No Known Unknown [facility] Allergy/4160 Allergies/F00 [facility] 78368(SNOMED 7313623(RXNOR Repository CT) M) 11/12/2016 Drug No Known [facility] Allergy/4160 Allergies/F00 Hospital 01151(SNOMED 2510760(RXNOR Repository CT) M) ENCOUNTERS ENCOUNTERS ADMIT/DISCHARGE ACCOUNT NUMBER ADMITTING ENCOUNTER LOCATION SOURCE CLASS 01/26/2018 [id number] [facility] [place] [address] [id number]: System [id number]: Repository [id number] 01/16/2018 [id number] Ambulatory [facility] System Repository 01/12/2018 [id number] Ambulatory [facility] ding:LAB Repository 12/10/[id number] [facility] ding:LAB Repository 11/22/[id number] [facility] ding:LABSPEC Repository 11/10/2017 [id number] Ambulatory [facility] ding:WOBLAB Repository 10/13/2017 [id number] Ambulatory [facility] Hospital ding:WOBLAB Repository 09/22/2017 [id number] Ambulatory [facility] Hospital ding:WOBLAB Repository 08/23/2017 [id number] Ambulatory [facility] Hospital ding:US Repository 07/25/2017 [id number] Ambulatory [facility] Hospital ding:US Repository 07/01/2017 [id number] Ambulatory [facility] ding:LAB.FUT Repository URE 06/30/2017 [id number] Ambulatory [facility] Hospital ding:US Repository 06/29/2017 [id number] Ambulatory [facility] Hospital ding:WOBLAB Repository 06/03/2017 [id number] Ambulatory [facility] ding:WOBLAB Repository 02/24/[id number] [facility] ding:LAB.FUT Repository URE PAYERS PAYERS ENCOUNTER GUARANTOR PAYER SUBSCRIBER SOURCE 01/26/2018 Darline Wright Primary Insurance:The [facility]line [facility]: Health PlanPolOhio Valley HospitalinerDOB: System Par Number: Effective [id number] Repository [address], Date: [place] [address]Gvh: (HP) 01/16/2018 Darline Wright Primary Insurance:The Darline Wright [facility]: Health PlanGeisinger Community Medical CenterinerDOB: System Par Number: Effective [id number] Repository [address], Date: [place] [address]Ssj: (HP) 01/12/2018 Darline Wright Primary Darline Wright Terrie [id number] Par Insurance:HEALTH PLAN inerDOB: [facility], [facility] [id number] Hospital [place] [address]Uwe: VENTURAPolicy Number: Repository [id number] () Date: [place], [place] [address]SD: 01/12/2018 Secondary NOT GIVENUNK Terrie Insurance:SELF PAY [facility] Number: Effective Repository Date:2018-01-12 12/10/2017 Darline Wright Primary Darline Wright Logan [id number] Par Insurance:HEALTH PLAN [facility], [facility] [id number] [place] [address]Jwy: VALLEYPolicy Number: Repository [id number] () Date: [place], [place] [address]TL: 12/10/2017 Secondary NOT GIVENUNK Terrie Insurance:SELF PAY [facility] Number: Effective Repository Date:2017-12-10 11/22/2017 Darline Wright Primary Darline Wright Logan [id number] Par Insurance:HEALTH PLAN [facility] CenterD[facility]: [facility], [facility] [id number] Hospital [place] [address]Hyq: VALLEYPolicy Number: Repository [id number] (HP) Date: [place], [place] [address]WJ: 11/22/2017 Secondary NOT GIVENUNK [place] Insurance:SELF PAY [facility] Number: Effective Repository Date:2017-11-22 11/10/2017 Darline Wright Primary Darline Yusufoster [id number] Par Insurance:HEALTH PLAN inerDOB: [facility] [id number] [address]Tel: VENTURAPolicy Number: Repository [id number] () Date: [place], [place] [address]VD: 11/10/2017 Secondary NOT GIVENUNK Logan Insurance:SELF PAY [facility] Number: Effective Repository Date:2017-11-10 10/13/2017 Darline Wright Primary Darline Yusufoster [id number] Par Insurance:HEALTH PLAN inerDOB: [facility] [id number] [address]Tel: VENTURAPolicy Number: Repository [id number] () Date: [place], [place] [address]OA: 10/13/2017 Secondary NOT GIVENUNK Terrie Insurance:SELF PAY [facility] Number: Effective Repository Date:2017-10-13 09/22/2017 Darline Wright Primary Darline Yusufoster [id number] Par Insurance:HEALTH PLAN [facility] campusD[facility]: [facility] [id number] [place] [address]Tel: VENTURAPolicy Number: Repository [id number] () Date: [place], [place] [address]EL: 09/22/2017 Secondary NOT GIVENUNK Terrie Insurance:SELF PAY [facility] Number: Effective Repository Date:2017-09-22 08/23/2017 Darline Wright Primary Darline Yusufoster [id number] Par Insurance:HEALTH PLAN [facility]linerD[facility] [place] [id number] Ville [address]Tel: VALLEYPolicy Number: Repository [id number] (HP) Date: [facility] [place] [address]YE: 08/23/2017 Secondary NOT GIVENUNK Logan Insurance:SELF PAY [facility] Number: Effective Repository Date:2017-08-22 07/25/2017 Darline Wright Primary Darline Wright Terrie [id number] Par Insurance:HEALTH PLAN inerDOB: [facility] [id number] [place]ille [address]Tel: VALLEYPolicy Number: Repository [id number] (HP) Date: [facility] [address]TU: 07/25/2017 Secondary NOT GIVENUNK Logan Insurance:SELF PAY [facility] Number: Effective Repository Date:2017-07-20 07/01/2017 Darline B Primary Darline Wright Terrie [id number] Par Insurance:HEALTH PLAN [facility] [id number] [place]ille [address]Tel: VALLEYPolicy Number: Repository [id number] () Date: [facility] [address]XP: 07/01/2017 Secondary NOT GIVENUNK [place] Insurance:SELF PAY [facility] Number: Effective Repository Date:2017-07-01 06/30/2017 Darline B Primary Darline Wright Terrie [id number] Par Insurance:HEALTH PLAN [facility] HospitalB[facility] [id number] Ville [address]Tel: VALLEYPolicy Number: Repository [id number] (HP) Date: [facility] [address]FH: 06/30/2017 Secondary NOT GIVENUNK Terrie Insurance:SELF PAY [facility] Number: Effective Repository Date:2017-06-30 06/29/2017 Darline Wright Primary Darline [id number] Par Insurance:HEALTH PLAN KlinerDOB: [facility] [id number] [facility] [address]Kwl: VALLEYPolicy Number: Repository [id number] (HP) Date: [place], [place] [address]LM: 06/29/2017 Secondary NOT GIVENUNK Terrie Insurance:SELF PAY [facility] Number: Effective Repository Date:2017-06-29 06/03/2017 Darline Wright Primary Darline [id number] Par Insurance:HEALTH PLAN [facility] CenterD[facility]: [facility] [id number] Ville [address]Tel: VALLEYPolicy Number: Repository [id number] (HP) Date: [place], [place] [address]JQ: 06/03/2017 Secondary NOT GIVENUNK Terrie Insurance:SELF PAY [facility] Number: Effective Repository Date:2017-06-03 02/24/2017 DARLINE Wright Primary DARLINE [id number] PAR Insurance:HEALTH PLAN [facility]: [facility] [id number] Ville [address]Tel: VALLEYPolicy Number: Repository [id number] (HP) Date:[id number] [place] [address]YY:
[2018-02-16 18:05] LABS: Anion Gap 7 (5-15); BUN 9 mg/dL (7-18); BUN/Creat Ratio 10.1 RATIO (10-20); Calcium,Total 9.3 mg/dL (8.5-10.1); Chloride 104 mmol/L (98-107); Creatinine, Serum 0.89 mg/dL (0.55-1.02); EST Glomerular Filtration Rate 75 mL/min (>60); Est Glom Filt Rate - Afr Amer 91 mL/min (>60); Free T3 2.7 pg/mL (2.18-3.98); Glucose 74 mg/dL (74-106); Potassium 4.1 mmol/L (3.5-5.1); Sodium Level 140 mmol/L (136-145); Thyroid Stim Hormone (TSH) 1.38 uIU/mL (0.358-3.74)
== END ==
PROVIDERS: Family Provider Family Medicine; PCP Family Medicine; Referring Provider Internal Medicine Endocrinology, Diabetes & Metabolism; Visit Provider Internal Medicine Endocrinology, Diabetes & Metabolism
DX: E03.9 Hypothyroidism, unspecified (principal)
CPT/HCPCS: 36415; 80048; 84439; 84443; 84481

== ENCOUNTER → 2018-04-24 12:00 | Outpatient (CLI) | payer OTHER, SELFPAY ==
[2018-03-27 08:26] VITALS: BMI 22.2
[2018-04-24 15:07] LABS: Free T3 2.4 pg/mL (2.18-3.98); T4 Free Direct 1.15 ng/dL (0.76-1.46); Thyroid Stim Hormone (TSH) 3.59 uIU/mL (0.358-3.74)
== END ==
PROVIDERS: Family Provider Family Medicine; PCP Family Medicine; Referring Provider Nurse Practitioner; Visit Provider Nurse Practitioner
DX: E03.9 Hypothyroidism, unspecified (principal)
CPT/HCPCS: 36415; 84439; 84443; 84481

== ENCOUNTER → 2018-05-22 12:18 | Outpatient (CLI) | payer OTHER, SELFPAY ==
[2018-03-27 08:26] VITALS: BMI 22.2
== END ==
PROVIDERS: Family Provider Family Medicine; PCP Family Medicine; Referring Provider Nurse Practitioner; Visit Provider Nurse Practitioner
DX: E03.9 Hypothyroidism, unspecified (principal)
CPT/HCPCS: 36415; 84439

== ENCOUNTER → 2018-07-31 | Outpatient (CLI) | payer OTHER, SELFPAY ==
[2018-03-27 08:26] VITALS: BMI 22.2
[2018-07-31 14:09] LABS: Free T3 2.5 pg/mL (2.18-3.98); T4 Free Direct 1.17 ng/dL (0.76-1.46); Thyroid Stim Hormone (TSH) 1.77 uIU/mL (0.358-3.74)
== END | disposition home or self-care (01) ==
LOC: MTLAB 12:26
PROVIDERS: Family Provider Family Medicine; PCP Family Medicine; Referring Provider Family Medicine; Visit Provider Family Medicine
DX: E03.9 Hypothyroidism, unspecified (principal)
CPT/HCPCS: 36415; 84439; 84443; 84481

== ENCOUNTER → 2018-08-25 14:22 | Outpatient (CLI) | payer OTHER, SELFPAY ==
[2018-03-27 08:26] VITALS: BMI 22.2
[2018-08-28 12:59] LABS: V-Zoster IgG (Immunity) 604 index (Immune >165)
== END ==
PROVIDERS: Family Provider Family Medicine; PCP Family Medicine; Visit Provider Family Medicine
DX: Z01.84 Encounter for antibody response examination (principal)
CPT/HCPCS: 36415; 86787

== ENCOUNTER → 2018-10-09 14:01 | Outpatient (CLI) | payer OTHER, SELFPAY ==
[2018-03-27 08:26] VITALS: BMI 22.2
[2018-10-09 17:35] LABS: Hematocrit 34.9 % (37-47); Hemoglobin 12.1 g/dl (12.0-15.0); Mean Corp Hgb Conc 34.7 g/gl (32-36); Mean Corpuscular Hgb 30.3 pg (27.0-32.0); Mean Corpuscular Volume 87.5 fL (81-99); Mean Platelet Vol. 10.1 fl (6.2-12.0); Platelet Count 221 K/mm3 (150-450); RBC Distribution Width SD 48.5 fl (35.1-43.9); Red Blood Count 3.99 M/mm3 (4.2-5.4); White Blood Count 14.9 K/mm3 (4.4-11.0)
[2018-10-09 17:57] LABS: Scan Indicated on CBC? Y/N NO
[2018-10-09 18:02] LABS: Glucose Challenge Gest 1H 50g 110 mg/dL (70-140)
== END ==
PROVIDERS: Visit Provider Obstetrics & Gynecology
DX: Z34.83 Encounter for supervision of other normal pregnancy, third trimester (principal)
CPT/HCPCS: 36415; 82950; 85027

== ENCOUNTER → 2018-12-08 10:31 | Outpatient (CLI) | payer OTHER, SELFPAY ==
[2018-03-27 08:26] VITALS: BMI 22.2
== END ==
PROVIDERS: Visit Provider Obstetrics & Gynecology
DX: Z36.85 Encounter for antenatal screening for Streptococcus B (principal)
CPT/HCPCS: 87081

== ENCOUNTER 2018-12-21 17:55 | Inpatient (IN) | payer OTHER, SELFPAY ==
[2018-03-27 08:26] VITALS: BMI 22.2
[2018-12-21 16:37] LABS: Hematocrit 34.4 % (37-47); Hemoglobin 11.9 g/dL (12.0-15.0); Mean Corp Hgb Conc 34.6 g/dL (32-36); Mean Corpuscular Hgb 30.7 pg (27.0-32.0); Mean Corpuscular Volume 88.7 fL (81-99); Mean Platelet Vol. 9.9 fl (6.2-12.0); Platelet Count 208 K/mm3 (150-450); RBC Distribution Width CV 14.5 % (11.6-14.6); RBC Distribution Width SD 46.5 fl (35.1-43.9); Red Blood Count 3.88 M/mm3 (4.2-5.4)
[2018-12-21 16:40] VITALS: BMI 28.8
[2018-12-21 16:45] LABS: Prothrombin Time (Protime)PT. 12.7 SECONDS (11.7-14.9)
[2018-12-21 16:46] LABS: Partial Thromboplast Time 27.2 Seconds (24.1-36.2)
[2018-12-21 16:49] LABS: AST(SGOT) 17 U/L (15-37); Alanine Aminotransfer ALT/SGPT 17 U/L (13-56); Creatinine, Serum 0.91 mg/dL (0.55-1.02); EST Glomerular Filtration Rate 73 mL/min (>60); Est Glom Filt Rate - Afr Amer 89 mL/min (>60); Estimated Creatinine Clearance 95.78 ml/min; Uric Acid 5.8 mg/dL (2.6-6.0)
[2018-12-21 17:35] LABS: Protein, Urine (Random) 25.5 mg/dL (<11.9); Protein:Creat Ratio 255 mg/g CRE (0-200)
[2018-12-21] MEDS: Lactated Ringers 1,000 ML 50 ML IV (18:10)
--- NOTE | 2018-12-21 21:21 | PCM.HP.BLA ---
History and Physical Date of Admission: 12/21/18 History of Current : This is a 38-year-old patient 1 para 0 who presented to the office today and was noted to have a blood pressure of 160/80. care has otherwise been uneventful except as noted below. She was sent to labor and delivery for monitoring and blood pressures continued to be intermittently elevated. PIH labs were normal. However given that she is 38 and half weeks gestation it was decided to proceed with induction for gestational hypertension. 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 at 14.6 weeks. on Clomid. Hx: mild asthma, UTI, endometriosis w infertility, chickenpox, seasonal allergies-Spring, hypothyroidism. Her mother-leukemia w cont chemo with new 2019 heart damage from chemo. Measures small but AGA at 37 weeks (15th percentile) REVIEW OF SYSTEMS: GENERAL - Denies fever, or chills SKIN - Denies skin changes EYES - Denies visual changes EARS - Denies difficulty hearing NOSE - Denies nasal congestion or bleeding MOUTH - Denies sore throat or difficulty swallowing NECK - Denies pain or swelling RESPIRATORY - Denies shortness of breath or wheezing CARDIOVASCULAR - Denies palpitations or chest pain GASTROINTESTINAL - Denies nausea, vomiting, diarrhea, constipation, abdominal pain, melena, or bright red blood GENITOURINARY - Denies dysuria, frequency of urination, incontinence of urine MUSCULOSKELETAL - Denies joint or muscle pain NEUROLOGICAL - Denies localized numbness or weakness PSYCHIATRIC - Denies depression or anxiety ENDOCRINE - Denies heat or cold intolerance, weight loss or gain HEMATO-IMMUNOLOGIC - Denies excesive bleeding with cuts PAST HISTORY: Breast/Ovarian/Colon Cancers - Denies Infections - Chicken pox Illnesses - asthma Accidents - no injuries of consequence History of Abnormal PAPS - YES Hospitalizations - see surgery SURGICAL HISTORY: 1. bilateral ankle surgery 2. 03/10/2015 hysteroscopy, D and C Luz Elena Charles MD 3. 11/15/2016 operative Laparoscopy, rt ovarian cystectomy, ablation of pelvic endometriosis Luz Elena Charles MD MENSTRUAL HISTORY: LMP Known?- DefiniteAmount/Duration - 7 days, Regularity - Regular, Frequency - monthly days, Age Onset Menarche - 11 PAST PREGNANCIES: Total Pregnancies - 1; Full Term Pregnancies - 0; Premature - 0; Abortions, Induced - 0; Abortions, Spontaneous - 0; Ectopics - 0; Multiple Births - 0; Living Children - 0 PHYSICAL EXAMINATION CONSTITUTIONAL - NAD, well nourished, and well developed SKIN - No rash, lesions, or ulcers HEENT - Normocephalic, PERRLA, EOMI EXTREMITIES - No edema or calf tenderness NEUROLOGICAL - Cranial nerves II-XII grossly intact PSYCHIATRIC - A and O to time, place, person, mood and affect Antepartum Flow Sheet Highlights: [facility] Nov 23 38 213 160/80 tr - 37 V 2+ 80 -2 [facility] Nov 23 37 214 130/72 tr - 34 [facility] Nov 23 36 211 138/72 - - 36 ? 1 25 -4 [facility] Nov 23 35 208 124/82 - - 35 [facility] Oct 25 33 204 110/84 - - 33 [facility] Oct 3 31 199 132/76 - - 30 ? [facility] Sep 3 28 196 110/70 - - 28 [facility] August 26 24 189 132/70 tr - 24 - [facility] Jul 27 20 180 120/80 - - 20 [facility] Jun 2 14 174 124/80 - - 14 SHORT ANTEPARTUM NOTE(S): Nov Repeat bp 140/68., To L and D Nov feeling well., Ck US for Growth Nov doing well, GBS and LARC today Nov Good FM,Low Pubic Bone Ache, Oct feeling well., Good FM Oct doing well Sep feeling well. Glucola drawn today. 11 September doing well, Glucola given an dinst reviewed. jlb Jul feeling well., US OK Jun Doing Well, had cf-DNA and declines AFP LONG ANTEPARTUM NOTES: Nov H&P taken to OB. tkg Nov Discussed PPBC. LARC declined. Labor, ROM, FM precautions. Nov Assessment: IUP @ 35 weeks 3 days Size = dates Plan: RTO 1 week GBS screen at next visit Oct Discussed si/sx preeclampsia, movement precautions. Oct Repeat BP rt upper arm regular cuff 126/78. jlb Jun O positive. RI. HepB neg. Cervical cultures NEG. EB Jun Darline is here for NOB nurse visit with HOMER 01-02-19 planning a vag del with epidural at [facility], unsure of post disch ped provider and does plan to breastfeed. Darline is a transfer from Dr Combs and used Clomid to achieve . 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 Her , is self employed with children 17, 19 and 20 who live w them. One of the teens has mild CP and developmental disabilities. They are happy about the . As HOMER coincides with [facility] she'd prefer to be earlier as they show animals. Darline has NKA to meds, food or latex. She does have some seasonal, usually Spring allergies. She has a history of mild asthma, triggered by smoke, cigarette smoke and occ other airborne irritants, using only a rescue inhaler, Proventil prn. Darline's diet is well balanced w occ coffee and only 4 bottles of water daily. She is a lifetime non smoker, denies past or present streett drug use and occ drinks alcohol but not in pg. She is active with weight training and cardio. Enc to walk 20 min daily. She has a history of chickenpox, mono. UTI, endometriosis w infertility, MRSA x 3 (last episode 6 y ago.) Genetic Screening form completed noting step son w dev disability and her meds of levothyroxine, Miramax and a ten day course of amoxicillin for a sinus infection. Warning signs in discussed along with OTC meds ok to take, lifting restriction of about 25#, wearing seatbelt low on abdomen and increasing water intake with understanding voiced. She was given a copy of What to Expect and routine office information papers. Office Childbirth Class and class discussed and enc. US and labs done previously in [place]. Enc to call w any concerns. Visit took one hour. Isaiah CARROLL. Labs for : DARLINE BAIRES since 04/06/2018 ORDER DATEIN DESCRIPTION VALUE UNITS RANGE A+ COMMENT PROTEIN+CREATININE RATIO,URINE 12/21/18 NOTE Original Ordering Provider: Aldair Covington UR CREAT 100.00 mg/dL NO RANGE EST. PROTEIN,UR.RAN. 25.5 mg/dL <11.9 H PROT:CRE RATIO 255 mg/g CRE 0-200 H TYPE AND SCREEN 12/21/18 Has pt arrived? Y Reason for Type AND Screen/Red Cells: ROUTINE [facility]~[address] [place], [address]~ BLOOD TYPE GEL O POSITIVE N ANTIBODY SCREEN NEGATIVE N PARTIAL THROMBOPLAST TIME 12/21/18 NOTE Original Ordering Provider: Aldair Covington PTT 27.2 Seconds 24.1-36.2 PROTHROMBIN TIME W/INR 12/21/18 NOTE Original Ordering Provider: Aldair Covington PROTIME 12.7 SECONDS 11.7-14.9 INR 1.0 ALANINE AMINOTRANSFERAS (SGPT) 12/21/18 NOTE Original Ordering Provider: Aldair Covington ALT 17 U/L 13-56 AST(SGOT) 12/21/18 NOTE Original Ordering Provider: Aldair Covington AST 17 U/L 15-37 URIC ACID 12/21/18 NOTE Original Ordering Provider: Aldair Covington URIC 5.8 mg/dL 2.6-6.0 The drugs N-Acetylcysteine and Metamizole may falsely depress this assay. SERUM CREATININE AND GFR 12/21/18 NOTE Original Ordering Provider: Aldair GR,SERUM 0.91 mg/dL 0.55-1.02 The validity of the calculated GFR AND GFRAA in patients over 70 years has not been determined. Clinical correlation is essential. EST GFR 73 mL/min >60 Non- GFR Calc EST GFR - AA 89 mL/min >60 GFR Calc ESTIMATED CRCL 95.78 ml/min CBC-COMPLETE BLOOD CNT NO DIFF 12/21/18 NOTE Original Ordering Provider: Aldair Gongcole WBC 14.0 K/mm3 4.4-11.0 H RBC 3.88 M/mm3 4.2-5.4 L HGB 11.9 g/dL 12.0-15.0 L HCT 34.4 % 37-47 L MCV 88.7 fL 81-99 MCH 30.7 pg 27.0-32.0 MCHC 34.6 g/dL 32-36 RDW CV 14.5 % 11.6-14.6 RDW SD 46.5 fl 35.1-43.9 H PLT 208 K/mm3 150-450 MPV 9.9 fl 6.2-12.0 CULTURE, GROUP B STREPTOCOCCUS 12/08/18 NOTE Original Ordering Provider: Jael Mock Comments: VAGINAL/RECTAL JENNY Culture Group B Beta Streptococcus is not isolated. Reviewed by ALDAIR GLUCOSE CHALLENGE GEST 1H 50G 10/09/18 NOTE Original Ordering Provider: Aldair Covington GLU GEST 50G 1H 110 mg/dL 70-140 Reviewed by ALDAIR CBC-COMPLETE BLOOD CNT NO DIFF 10/09/18 NOTE Original Ordering Provider: Aldair Covington WBC 14.9 K/mm3 4.4-11.0 H RBC 3.99 M/mm3 4.2-5.4 L HGB 12.1 g/dl 12.0-15.0 HCT 34.9 % 37-47 L MCV 87.5 fL 81-99 MCH 30.3 pg 27.0-32.0 MCHC 34.7 g/gl 32-36 RDW CV 15.0 % 11.6-14.6 H RDW SD 48.5 fl 35.1-43.9 H PLT 221 K/mm3 150-450 MPV 10.1 fl 6.2-12.0 Reviewed by ALDAIR GC-Chlamydia 06/09/18 Chlamydia negative Negative GC no growth No Growth Reviewed by SUSAN Panel-Thyroid 06/09/18 Thyroid Stimulating Hormone 1.733 micro IU/ml 0.4-5.5 Reviewed by SUSAN Initial OB Labs 06/09/18 Blood Type O Rh Type positive Antibody Screen neg Negative Hemoglobin Initial OB 14.2 Hematocrit Initial OB 42.2 PLT 248,00 Rubella immune Immune VDRL non reactive Non Reactive HBsAg non detected Negative HIV Test non detected Negative Reviewed by SUSAN PROVIDER SIGNATURE ( REQUIRED) Impression/Plan: 38+ week intrauterine with gestational hypertension. Plan rupture of membranes and Pitocin augmentation. Expect spontaneous vaginal delivery.
[2018-12-21] MEDS: Lactated Ringers 500 ML 999 ML IV (21:41)
[2018-12-21] MEDS: fentaNYL-bupivacaine (epidural) 100 ML BAG EPIDURAL (22:44)
[2018-12-22] MEDS: Oxytocin 30 units/NS 500 ml 30 UNITS/500 ML IV.SOLN IV
[2018-12-22] MEDS: Lactated Ringers 1,000 ML 200 ML IV (02:50)
[2018-12-22] MEDS: fentaNYL-bupivacaine (epidural) 100 ML BAG EPIDURAL (02:50)
[2018-12-22] MEDS: Lactated Ringers 500 ML 999 ML IV (04:36)
[2018-12-22] MEDS: Acetaminophen 325 MG Tablet PO (05:50)
[2018-12-22] MEDS: 0.9% Saline Lock 10 ML Syringe IV ×2 (06:35→10:49)
[2018-12-22] MEDS: Oxytocin 30 units/NS 500 ml 30 UNITS/500 ML IV.SOLN 334 UNITS IV (07:32)
--- NOTE | 2018-12-22 07:41 | PCM.OPRPT ---
Vaginal Delivery Maternal Presentation: Medically Indicated Induction - Gestational Hypertension Method of Induction: Pitocin, Amniotomy Medical Reason for Induction: Gestational Hypertension Amniotic Membrane Rupture Type: Artificial Amniotic Fluid Description: Clear Final HOMER: 01/01/19 Final HOMER Source: US <20 weeks Gestational age: 38 Weeks and 4 Days Date of Procedure: 12/22/18 Pre-Operative Diagnosis: IUP, Gestational Hypertension Post-Operative Diagnosis: IUP, Gestational Hypertension Surgery/ Procedure Performed: Spontaneous Vaginal Delivery Type of Anesthesia: Epidural Description of Procedure: Spontaneous vaginal delivery of a viable female infant with Apgars of 8/9 from an occiput anterior presentation with clear amniotic fluid and normal three-vessel placenta. No episiotomy or lacerations. Sponges okay. Delivery physician: Pranav Covington MD. Presentation: Vertex Placental Delivery Description: Spontaneous Placenta Disposition: [facility] Cord Vessel Description: 3 Vessels Cord Entanglement: Around neck x 1, tight Estimated Blood Loss: 250 cc Infant A gender: Female (1 minute): 8 (5 minute): 9 Episiotomy Description: None Laceration: None Medications given after delivery: IV Pitocin Complications: None
--- NOTE | 2018-12-22 07:44 | DCINST_ITS ---
Discharge Diet: No Restrictions May resume sexual activity in: 4-6 weeks Additional Activity Instructions:: Nothing in the vagina for 4-6 weeks. You may return to work/school in 6 weeks. Call your doctor if you observe: Fever of 101 or Higher, Inability to urinate, Inability to have a bowel movement, Using more than one pad per hour Additional Instructions: If you experience any of the following, contact your healthcare provider. * Bleeding that soaks a pad every hour for 2 hours * Unrelieved incision or abdominal pain * Swelling, redness, discharge or bleeding from your incision or episiotomy site * Your incision begins to separate * Problems urinating (including inability to urinate or burning while urinating). * Visual changes * Severe headache * Flu-like symptoms * Pain or redness in one of both of your breasts * Pain, warmth, tenderness or swelling in your legs, especially the calf area * Frequent nausea and vomiting * Symptoms of depression or anxiety If you experience any of the following, call 911 or go to the nearest Emergency Room. * Chest pain * Problems breathing * Seizure activity * Partial or complete paralysis of a body part, slurred speech, weakness or drooping of the face, or a sudden inability to walk or hold your balance Allergies/Adverse Reactions: Allergies No Known Allergies Allergy (Verified 12/21/18 16:42) Medications to take at Discharge levothyroxine 75 mcg tablet See Rx Instructions PO .COMPLEX #34 tab 05/23/18 Vits [Prenatabs FA] 1 tab PO DAILY 12/21/18 Please Follow Up With: Pranav Covington MD - [phone] When: Call to make an appointment with your doctor in 6 weeks. Primary Care Physician: Amita Castle DO [Primary Care Provider] - Test Results: Test results from this visit will be discussed in further detail at your follow- up appointment, if applicable.
--- NOTE | 2018-12-22 07:44 | PCM.DCVAG ---
Discharge Diet: No Restrictions May resume sexual activity in: 4-6 weeks Additional Activity Instructions:: Nothing in the vagina for 4-6 weeks. You may return to work/school in 6 weeks. Call your doctor if you observe: Fever of 101 or Higher, Inability to urinate, Inability to have a bowel movement, Using more than one pad per hour Additional Instructions: If you experience any of the following, contact your healthcare provider. Bleeding that soaks a pad every hour for 2 hours Unrelieved incision or abdominal pain Swelling, redness, discharge or bleeding from your incision or episiotomy site Your incision begins to separate Problems urinating (including inability to urinate or burning while urinating). Visual changes Severe headache Flu-like symptoms Pain or redness in one of both of your breasts Pain, warmth, tenderness or swelling in your legs, especially the calf area Frequent nausea and vomiting Symptoms of depression or anxiety If you experience any of the following, call 911 or go to the nearest Emergency Room. Chest pain Problems breathing Seizure activity Partial or complete paralysis of a body part, slurred speech, weakness or drooping of the face, or a sudden inability to walk or hold your balance Allergies/Adverse Reactions: Allergies No Known Allergies Allergy (Verified 12/21/18 16:42) Medications to take at Discharge levothyroxine 75 mcg tablet See Rx Instructions PO .COMPLEX #34 tab 05/23/18 Vits [Prenatabs FA] 1 tab PO DAILY 12/21/18 Please Follow Up With: Pranav Covington MD - [phone] When: Call to make an appointment with your doctor in 6 weeks. Primary Care Physician: Amita Castle DO [Primary Care Provider] - Test Results: Test results from this visit will be discussed in further detail at your follow-up appointment, if applicable.
[2018-12-22] MEDS: Ibuprofen 600 MG Tablet PO ×2 (08:27→20:08)
--- NOTE | 2018-12-22 10:03 | NURSING ---
Dr. Cardoso called to say she put in order for Labetalol 100 mg BID, pt informed. Waiting on pharmacy to verify meds.
[2018-12-22] MEDS: Labetalol 100 MG Tablet PO ×2 (10:49→22:36)
[2018-12-22 11:30] VITALS: BP 140/77; PULSE 89; RESP 16; TEMP 36.8
[2018-12-22] MEDS: Levothyroxine 75 MCG Tablet PO (12:24)
--- NOTE | 2018-12-22 12:43 | NURSING ---
Pt up to bathroom after 1130 vs. BP 140/77. fundus firm no bleeding. Pt stood without issue and lifted both legs no ringing ears and feeling ok per pt. To bathroom and voided 400, passed a clot with some small bleeding afterward. fundus firm when checked. Pt up to sink to wash hands and pt stated not feeling well. Staff assist called, staff to room to assist mother back to [facility] and staff got wheelchair. Used ammonia capsule and fanned pt. Got pt to wheelchair and back to bed. first BP in bed was 97/53. Pt started on Labetalol today and first dose given around 1040 today. Fan on pt, got juice for pt and took serial blood pressures every 5 minutes for 30 minutes. Stabilized between 123/66 and 109/68. Instructed pt not to get up without RN and Dr. Cardoso office called with update on what transpired. Message left with Krystal in office. Family in room with pt and pt ordered lunch. Will continue to monitor.
--- NOTE | 2018-12-22 13:30 | NURSING ---
Received report from Isabel Monaco RN. I will assume care of patient at this time.
[2018-12-22 16:13] VITALS: BP 130/81; PULSE 82; RESP 16; TEMP 36.7; O2SAT 100
--- NOTE | 2018-12-22 16:28 | NURSING ---
Patient up to bathroom with nurse assistance. Became lightheaded while washing her hands. Assisted to wheelchair and transferred to bed with assistance of two nurses. Patient maintained consciousness. Laid flat. Initial BP 165/88. RN at bedside.
[2018-12-22 16:37] VITALS: BP 137/80
--- NOTE | 2018-12-22 19:02 | NURSING ---
Patient up to restroom with nurse assistance. No complaints of dizziness.
[2018-12-22 20:00] VITALS: BP 137/76; PULSE 87; RESP 18; TEMP 36.6; O2SAT 95
[2018-12-22 21:36] VITALS: BP 170/82; PULSE 86; O2SAT 96
[2018-12-22 21:52] VITALS: BP 124/69; BP 131/45; PULSE 84; O2SAT 96
--- NOTE | 2018-12-22 22:15 | NURSING ---
Patient up to bathroom with nurse assistance. Pt reported she felt off when getting back into bed. Patient maintained consciousness. Initial BP 170/82, then after 15 minutes 131/45 and 124/69. Pt then reports feeling back to normal. Dr. Cardoso updated-see physician notification. Pt instructed to call overnight for RN to assist to bathroom.
[2018-12-23 00:15] VITALS: BP 114/59; PULSE 89; RESP 18; TEMP 36.9; O2SAT 97
[2018-12-23 04:35] VITALS: BP 121/65; PULSE 81; RESP 16; TEMP 36.6; O2SAT 95
[2018-12-23 04:53] LABS: Hemoglobin 9.5 g/dL (12.0-15.0); Mean Corp Hgb Conc 33.9 g/dL (32-36); Mean Corpuscular Hgb 30.6 pg (27.0-32.0); Mean Corpuscular Volume 90.3 fL (81-99); Platelet Count 172 K/mm3 (150-450); RBC Distribution Width CV 14.8 % (11.6-14.6); RBC Distribution Width SD 48.3 fl (35.1-43.9); White Blood Count 15.4 K/mm3 (4.4-11.0)
[2018-12-23] MEDS: Levothyroxine 75 MCG Tablet PO (06:24)
[2018-12-23] MEDS: Ibuprofen 600 MG Tablet PO ×2 (06:27→16:56)
--- NOTE | 2018-12-23 07:04 | NURSING ---
Encouraged pt to attempt to latch infant or pump overnight if wanting to breastfeed. Pt does not desire to at this time, educated on milk supply.
--- NOTE | 2018-12-23 07:54 | PCM.PN.OB ---
Subjective: PPD#1 Doing well. Baby is bottle feeding. Minimal pain. Using Ibuprofen prn for this. No lacerations, no repair at delivery 5# 14 oz female . Some cramping noted. Feeling better today. Some vasovagal type symptoms with up to bathroom yesterday. Started on Labetalol for HTN after delivery. HTN as reason for induction also. - Physical Exam General: Alert, Oriented x3, Cooperative, No apparent distress HEENT: Atraumatic, EOMI Neck: Supple Abdomen: Soft - fundus firm NT inferior to umbilicus by 2 cm Psych/Mental Status: Normal Affect Vital Signs Temp Pulse Resp BP Pulse Ox 97.8 F 81 16 121/65 H 95 12/23/18 04:35 12/23/18 04:35 12/23/18 04:35 12/23/18 04:35 12/23/18 04:35 Oxygen Delivery Method Room Air Weight: 96.615 kg Body Mass Index (BMI) 28.8 Intake and Output for Last 24 Hours 12/21/18 12/22/18 12/23/18 23:59 23:59 23:59 Intake Total 675 / 675 3396.53 / 3396.53 Output Total 3200 / 3200 Balance 675 / 675 196.53 / 196.53 Laboratory Tests Past 24 Hrs 12/23/18 04:44 WBC 15.4 H RBC 3.10 L Hgb 9.5 L Hct 28.0 L MCV 90.3 MCH 30.6 MCHC 33.9 RDW Std Deviation 48.3 H RDW Coeff of Javi 14.8 H Plt Count 172 MPV 10.0 Medical Necessity - Tobacco Use Smoking Status: Never smoker Assessment/Plan All Active Problems (Last Updated 12/23/18 @ 07:55 by Izzy Cardoso MD) Endometrial thickening on ultra sound (Resolved) Hypothyroidism (acquired) (Resolved) Menorrhagia (Resolved) Right ovarian cyst (Resolved) PPD#1 #1) S/P . Stable pp. #2) PIH, mild preeclampsia as reason for induction. HTN postdelivery and started on Labetalol 100 mg po bid yesterday. BPs today with very low diastolics, SBP wnl. Will hold Labetalol/discontinue for now and observe BPs. Continue routine pp care.
[2018-12-23 08:05] VITALS: BP 127/78; PULSE 87; RESP 16; TEMP 36.6
[2018-12-23 13:40] VITALS: BP 129/78; PULSE 80; RESP 16; TEMP 36.8
[2018-12-23 21:11] VITALS: BP 134/61; PULSE 88; RESP 18; TEMP 37.3
[2018-12-24 02:30] VITALS: BP 119/70; PULSE 83; RESP 16; TEMP 37.4
[2018-12-24] MEDS: Levothyroxine 75 MCG Tablet PO (06:58)
--- NOTE | 2018-12-24 08:01 | PCM.PN.OB ---
Subjective: PPD#2 Breast feeding. Minimal pain, cramping. No concerns voiced. - Physical Exam General: Alert, Oriented x3, Cooperative, No apparent distress HEENT: Atraumatic, EOMI Neck: Supple Psych/Mental Status: Normal Affect Vital Signs Temp Pulse Resp BP Pulse Ox 99.3 F H 83 16 119/70 95 12/24/18 02:30 12/24/18 02:30 12/24/18 02:30 12/24/18 02:30 12/23/18 04:35 Oxygen Delivery Method Room Air Weight: 96.615 kg Body Mass Index (BMI) 28.8 Intake and Output for Last 24 Hours 12/22/18 12/23/18 12/24/18 23:59 23:59 23:59 Intake Total 3396.53 / 3396.53 Output Total 3200 / 3200 Balance 196.53 / 196.53 Medical Necessity - Tobacco Use Smoking Status: Never smoker Assessment/Plan All Active Problems (Last Updated 12/23/18 @ 07:55 by Izzy Cardoso MD) Endometrial thickening on ultra sound (Resolved) Hypothyroidism (acquired) (Resolved) Menorrhagia (Resolved) Right ovarian cyst (Resolved) PPD#2 #1) S/P . Stable pp. #2) PIH, mild preeclampsia as reason for induction. HTN postdelivery and started on Labetalol 100 mg po bid yesterday. BPs today WNL. no meds for HTN Continue routine pp care. Dischg home today.
[2018-12-24 08:35] VITALS: BP 133/70; PULSE 89; RESP 16; TEMP 36.9
[2018-12-24 14:50] VITALS: BP 145/87; PULSE 98; RESP 16; TEMP 37.1
== END 2018-12-24 15:45 | disposition home or self-care (01) | DRG 807 ==
LOC: WPOUT 18:00 → WP 12-22 07:42
PROVIDERS: Obstetrics & Gynecology; Admitting Provider Obstetrics & Gynecology; Family Provider Family Medicine; PCP Family Medicine; Referring Provider Obstetrics & Gynecology; Visit Provider Obstetrics & Gynecology
DX: O14.04 Mild to moderate pre-eclampsia, complicating childbirth (principal); O69.1XX0 Labor and delivery complicated by cord around neck, with compression, not applicable or unspecified; O13.4 Gestational [pregnancy-induced] hypertension without significant proteinuria, complicating childbirth; O99.284 Endocrine, nutritional and metabolic diseases complicating childbirth; E03.9 Hypothyroidism, unspecified; Z87.440 Personal history of urinary (tract) infections; Z86.14 Personal history of Methicillin resistant Staphylococcus aureus infection; Z3A.38 38 weeks gestation of pregnancy; Z37.0 Single live birth
CPT/HCPCS: 59050; 82565; 82570; 84156; 84450; 84460; 84550; 85027; 85610; 85730; 86850; 86900; 86901; 99218; J7120; A4216; G0378

== ENCOUNTER → 2018-12-27 14:40 | Outpatient (CLI) | payer OTHER, SELFPAY ==
[2018-12-21 16:40] VITALS: BMI 28.8
== END ==
PROVIDERS: Family Provider Family Medicine; PCP Family Medicine; Visit Provider Registered Nurse Lactation Consultant
DX: Z00.00 Encounter for general adult medical examination without abnormal findings (principal)
CPT/HCPCS: 96152

== ENCOUNTER 2019-01-04 09:18 | Day surgery (SDC) | payer OTHER, SELFPAY | END 2019-01-04 10:15 | disposition home or self-care (01) | PROVIDERS: Family Provider Family Medicine; PCP Family Medicine; Referring Provider Anesthesiology; Visit Provider Anesthesiology | PROC: 3E0R3GC Introduction of Other Therapeutic Substance into Spinal Canal, Percutaneous Approach (ICD-10-PCS; CPT 62273; principal; 2019-01-04 09:30) | DX: R69 Illness, unspecified (principal) | CPT/HCPCS: J7120 ==

== ENCOUNTER → 2019-02-07 13:15 | Outpatient (CLI) | payer OTHER, SELFPAY ==
[2019-02-12 16:28] LABS: HPV Reflexed? NOT INDICATED
== END ==
PROVIDERS: Visit Provider Obstetrics & Gynecology
DX: Z12.4 Encounter for screening for malignant neoplasm of cervix (principal)
CPT/HCPCS: 88175; G0145

== ENCOUNTER → 2019-10-09 13:04 | Outpatient (CLI) | payer OTHER, SELFPAY ==
--- NOTE | 2019-10-09 13:04 | RAD_ITS ---
STUDY: X-RAY - RIGHT KNEE REASON FOR EXAM: Chronic pain. TECHNIQUE: 4 view(s) of the knee. COMPARISON: None. FINDINGS: Normal visualized distal femur. Normal visualized proximal tibia and fibula. Normal proximal tibiofibular articulation. Normal medial femorotibial compartment. Normal lateral femorotibial compartment. Normal patellofemoral articulation. The soft tissue structures are unremarkable. RAD/Knee 4 or More Views IMPRESSION: Normal x-ray examination of the right knee. Electronically Signed: Junaid Vargas MD at 14:56 EDT Tel , Service support ,
--- NOTE | 2019-10-09 13:04 | RAD_ITS ---
STUDY: X-RAY - LEFT KNEE REASON FOR EXAM: Chronic pain. TECHNIQUE: 4 view(s) of the knee. COMPARISON: None. FINDINGS: Normal visualized distal femur. Normal visualized proximal tibia and fibula. Normal proximal tibiofibular articulation. Normal medial femorotibial compartment. Normal lateral femorotibial compartment. Normal patellofemoral articulation. The soft tissue structures are unremarkable. RAD/Knee 4 or More Views IMPRESSION: Normal x-ray examination of the left knee. Electronically Signed: Junaid Vargas MD at 14:54 EDT Tel , Service support ,
== END ==
PROVIDERS: Referring Provider Orthopaedic Surgery; Visit Provider Orthopaedic Surgery
DX: M25.561 Pain in right knee (principal); M25.562 Pain in left knee
CPT/HCPCS: 73564

== ENCOUNTER → 2019-10-18 16:13 | Outpatient (CLI) | payer OTHER, SELFPAY ==
[2019-10-09 13:40] VITALS: BMI 28.8
[2019-10-18 17:56] LABS: Free T3 2.3 pg/mL (2.18-3.98); T4 Free Direct 1.21 ng/dL (0.76-1.46); Thyroid Stim Hormone (TSH) 2.72 uIU/mL (0.358-3.74)
== END ==
PROVIDERS: PCP Family Medicine; Visit Provider Family Medicine
DX: E78.5 Hyperlipidemia, unspecified (principal); E03.9 Hypothyroidism, unspecified
CPT/HCPCS: 36415; 84439; 84443; 84481

== ENCOUNTER → 2019-10-19 06:34 | Outpatient (CLI) | payer OTHER, SELFPAY ==
[2019-10-09 13:40] VITALS: BMI 28.8
--- NOTE | 2019-10-19 06:35 | MRI_ITS ---
STUDY: MRI LEFT KNEE REASON FOR EXAM: Female, 39 years old. Left knee pain. Internal derangement. ACL sprain. Instability. TECHNIQUE: Standardized fat and water weighted pulse sequences were obtained in all 3 orthogonal planes. COMPARISON: October 09, 2019. FINDINGS: Chondromalacia at the lateral patellar facet (axial image 10 series 2). Grade 2 cartilage loss at the lateral patellar facet. Lateral compartment articular cartilage preserved. Medial compartment grade 2 cartilage loss. No acute fracture. No acute dislocation. No acute bone destruction. Tiny medial femoral condyle cyst. Lateral meniscus intact. Mild medial meniscal degeneration without tear. Trace joint effusion. No popliteal cyst. Minimal soft tissue swelling anteriorly. Anterior and posterior cruciate ligaments intact. Normal medial collateral ligamentous complex (MCL). Normal distal semimembranosus, gracilis and semitendinosus tendons. Normal proximal tibiofibular articulation. Normal lateral collateral (fibular) ligament. Normal popliteus tendon. Normal biceps femoris tendon. Normal anterior cruciate ligament (ACL). Normal posterior cruciate ligament (PCL). Normal medial and lateral patellar retinaculum. Normal quadriceps tendon. Normal patellar tendon. Normal Hoffa''s fat pad. 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
== END ==
PROVIDERS: PCP Family Medicine; Referring Provider Orthopaedic Surgery; Visit Provider Orthopaedic Surgery
DX: M23.92 Unspecified internal derangement of left knee (principal)
CPT/HCPCS: 73721

== ENCOUNTER 2019-11-01 07:00 | Outpatient (RCR) | payer OTHER, SELFPAY ==
[2019-10-09 13:40] VITALS: BMI 28.8
--- NOTE | 2019-10-11 09:14 | HP.PTEVAL ---
Patient's Visit Information SELENE BAIRES is a 39 year old F referred to Physical Therapy by Dr. Luz Elena Sandhu DO with a diagnosis of Left ACL Tear and Med Meniscal Tear. Date of Evaluation: 10/11/19 Physical Therapist: Shima Casey DPT - Visit Plan Frequency: 2x /Week Duration: 3 Weeks Plan: Focus on LE and core strength/stabilization- HEP for gym membership - Subjective Patient reports that is having bilateral knee problems with a slight to full tear on the left of the ACL- they have been bothering her for years. It would get weak and a catching sensatio- then it would go away. Trying to PT prior to having a possible MRI. It gave out on her a few weeks ago when she was jogging back into her parents house. Hurt her knee really bad in high school- 20 plus years ago- family MD put her in an immobilizer- possible ACL tear then. Worst: 4/10 Best: 0/10 most of the time. Agg: steers clear of jumping Eases: Ibuprofen, ice. Reports the pain is sharp/shooting. Sleep: not disturbed- Pain is located along the medial side of the knee and does not radiate. Works out: cardio, bike, ellip- weight training- leg extension, squats, lunges, calf raises, hamstrings. PMHx: thyroid Meds: levothyroxin - Objective Posture: fair- can correct with verbal cues. Gait: no deviation noted with walking or running- mild valgus. HR/TR: able to no pain. SLS: 10 sec then LOB with significant muscle activation and hip drop bilaterally. Palpation: tender along medial joint line bilaterally. Patellar mobs: good movement. ROM: 0-130 degrees. Strength: Ankle: 4+/5, Knee: 4+/5, Hip: flexion: 4/5, IR/ER: 4/5, Extn: 4+/5, Abd: 4+/5. Flex: HS: moderate, Gastroc: moderate. Special Test: Melia: positive on left, Raquel: positive on left, Pelvic alignment: WFL, LLD: negative - Goals Goal 1:: Patient will be I with HEP and progression Goal Time Frame: 4-6 Weeks Goal 2:: Patient will squat with good mechanics and no pain Goal Time Frame: 4-6 Weeks Goal 3:: Patient will maintain proper posture t/o tx session to demo increased core s/s. Goal Time Frame: 4-6 Weeks Goal 4:: Patient will report 0/10 pain for 1 week in left knee Goal Time Frame: 4-6 Weeks Goal 5:: Patient will demo 4+/5 strength in hip Goal Time Frame: 4-6 Weeks - Rehabilitation Potential Physical Therapy Diagnosis: Patient presents with hypomobility- she has decreased strength, flex and muscular endurance leading to poor posture and inceased pain with ADL's and recreational activities. Rehabilitation Potential: Fair - Anticipated Interventions Patient/Client Instruction: Educate patient on: Benefits of Fitness Program Therapeutic Exercise to Include: Strength training, Endurance training, Balance training, Coordination, Agility training, Body mechanics, Postural training, Flexibilty training, Gait and locomotor training, Neuromotor development, Dynamic Lumbar Stabilization, Scapular Strength/Stabilization For the Purpose of:: To improve muscle performance and motor function TENS: Yes Cryotherapy (ice pack, ice massage): Yes Thermo therapy (hot pack): Yes Ultrasound (thermal/non thermal): Yes For the Purpose of:: To decrease pain Thank you for the opportunity to evaluate your patient. For Medicare and Medicare HMO plans, please review the plan of care and approve it. It will need to be FAXED BACK to us at [phone] for Medicare purposes. For Medicare only, by signing this I certify the plan of care. Please let me know if there are questions or concerns regarding this plan of care. Physician Signature: Date:
--- NOTE | 2019-11-01 08:07 | HP.PTDCSUM ---
It has been my pleasure to treat SELENE BAIRES referred by Dr. Luz Elena Sandhu DO, with the diagnosis of Left ACL Tear and Med Meniscal Tear for a total of 7 visit(s). Discharge Date: Please see the following information for a summary of their discharge status. Subjective: Patient reports that she has dull and achy pains on the medial side of the knee- little stiff if she bends it all the way back and if she pushes off of it wrong. No significant improvement. Goes back to see MD on Tuesday. % Improvement: 50 Objective/Function: Posture: good throughout. Gait: no deviation noted with walking or running- mild valgus. HR/TR: able to no pain. SLS: 30 sec then LOB without significant muscle activation and hip drop bilaterally. Palpation: tender along medial joint line bilaterally. Patellar mobs: good movement. ROM: 0-130 degrees. Strength: Ankle: 5/5, Knee: 5/5, Hip: flexion: 4+/5, IR/ER: 4+/5, Extn: 4+/5, Abd: 4+/5. Flex: HS: moderate, Gastroc: moderate. Special Test: Melia: positive on left, Raquel: positive on left, Pelvic alignment: WFL, LLD: negative Goal 1:: Patient will be I with HEP and progression Goal Progress: Goal Met Goal 2:: Patient will squat with good mechanics and no pain Goal Progress: Progressing Goal 3:: Patient will maintain proper posture t/o tx session to demo increased core s/s. Goal Progress: Goal Met Goal 4:: Patient will report 0/10 pain for 1 week in left knee Goal Progress: Not Progressing Goal 5:: Patient will demo 4+/5 strength in hip Goal Progress: Goal Met Plan: Discharge to HEP- return to MD next week If there are questions or concerns regarding this patient's physical therapy, please feel free to call me at [phone]. Thank you for the referral of this patient. Sincerely, Shima Casey DPT
== END 2019-11-01 08:27 | disposition home or self-care (01) ==
LOC: PT 07:00
PROVIDERS: Referring Provider Orthopaedic Surgery; Visit Provider Orthopaedic Surgery
DX: S83.512D Sprain of anterior cruciate ligament of left knee, subsequent encounter (principal); S83.242D Other tear of medial meniscus, current injury, left knee, subsequent encounter
CPT/HCPCS: 97110; 97162; 97164

== ENCOUNTER → 2019-12-14 07:47 | Outpatient (CLI) | payer OTHER, SELFPAY ==
[2019-12-06 11:22] VITALS: BMI 28.8
--- NOTE | 2019-12-14 08:09 | US_ITS ---
STUDY: ULTRASOUND OF THE FEMALE PELVIS - COMPLETE REASON FOR EXAM: Female, 39 years old. Pain. History of endometriosis. LMP: 11/29/2019. TECHNIQUE: Transabdominal and Transvaginal TECHNICAL QUALITY: Adequate. COMPARISON: 08/23/2017. FINDINGS: The uterus is anteverted and is in a midline position. The uterus measures 7.6 x 4.9 x 4.8 cm. There is a Nabothian cyst of the cervix. The endometrium measures 9.8 mm in thickness, and is hyperechoic. There is no demonstrated endometrial mass. There is no demonstrated myometrial mass. I.U.D. - The patient does not have an I.U.D. The right ovary is visualized. The right ovary measures 2.9 x 2.3 x 2.3 cm. There are multiple follicles of the right ovary without a dominant cyst. The complex cyst seen on previous ultrasounds is no longer present There is no visualized right adnexal mass or complex lesion. There is normal arterial and normal venous vascularity. The left ovary is visualized. The left ovary measures 3.7 x 2.5 x 2.2 cm. There are multiple follicles of the left ovary without a dominant cyst. There is no visualized left adnexal mass or complex lesion. There is normal arterial and normal venous vascularity. There is no fluid in the cul-de-sac. The pre void volume of the bladder was ml. The post void volume of the bladder was ml. Polycystic ovary disease: No. US/Transvaginal Non- IMPRESSION: Normal female pelvis. Electronically Signed: Wali Vivas DO at 22:56 EDT Tel [phone], Service support ,
--- NOTE | 2019-12-14 08:09 | US_ITS ---
STUDY: ULTRASOUND OF THE FEMALE PELVIS - COMPLETE REASON FOR EXAM: Female, 39 years old. Pain. History of endometriosis. LMP: 11/29/2019. TECHNIQUE: Transabdominal and Transvaginal TECHNICAL QUALITY: Adequate. COMPARISON: 08/23/2017. FINDINGS: The uterus is anteverted and is in a midline position. The uterus measures 7.6 x 4.9 x 4.8 cm. There is a Nabothian cyst of the cervix. The endometrium measures 9.8 mm in thickness, and is hyperechoic. There is no demonstrated endometrial mass. There is no demonstrated myometrial mass. I.U.D. - The patient does not have an I.U.D. The right ovary is visualized. The right ovary measures 2.9 x 2.3 x 2.3 cm. There are multiple follicles of the right ovary without a dominant cyst. The complex cyst seen on previous ultrasounds is no longer present There is no visualized right adnexal mass or complex lesion. There is normal arterial and normal venous vascularity. The left ovary is visualized. The left ovary measures 3.7 x 2.5 x 2.2 cm. There are multiple follicles of the left ovary without a dominant cyst. There is no visualized left adnexal mass or complex lesion. There is normal arterial and normal venous vascularity. There is no fluid in the cul-de-sac. The pre void volume of the bladder was ml. The post void volume of the bladder was ml. Polycystic ovary disease: No. US/Pelvic (Non ) IMPRESSION: Normal female pelvis. Electronically Signed: Wali Vivas DO at 22:56 EDT Tel [phone], Service support ,
== END ==
PROVIDERS: PCP Family Medicine; Referring Provider Obstetrics & Gynecology; Visit Provider Obstetrics & Gynecology
DX: N80.9 Endometriosis, unspecified (principal)
CPT/HCPCS: 76830; 76856

== ENCOUNTER → 2020-04-11 06:31 | Outpatient (CLI) | payer OTHER, SELFPAY ==
[2019-12-06 11:22] VITALS: BMI 28.8
--- NOTE | 2020-04-11 06:45 | MRI_ITS ---
STUDY: MRI BRAIN WITH AND WITHOUT CONTRAST REASON FOR EXAM: Female, 39 years old. Chronic daily headaches base of skull TECHNIQUE: Standardized multiplanar fat and water weighted pulse sequences were obtained. IV 15cc Dotarem was administered for the contrast portion of the examination. COMPARISON: None. FINDINGS: No restricted diffusion to suspect acute or subacute ischemic infarct. 2 x 1.7 x 1.8 cm posterior parafalcine solid enhancing meningioma encasing and obliterating small portion of the superior sagittal sinus. This is in between both sides of the paracentral lobules. No associated vasogenic edema of the underlying brain parenchyma. Normal ventricles and cisterns. Normal white matter tracts of the supratentorial brain. Normal bilateral basal ganglia. Normal thalami. There is no extra-axial fluid accumulation. Normal flow voids within the major intracranial circulation suggesting patency by spin echo criteria. Normal venous enhancement. There is no enhancing intra-axial or extra-axial abnormality. Normal sella turcica, pituitary gland, infundibular stalk, optic chiasm and hypothalamus. Normal tectal plate and pineal gland. Normal midbrain, angel and medulla. Normal cerebellum. Normal basal cisterns. Normal bilateral temporal bones. Normal bilateral internal auditory canals. No demonstrated orbital abnormality, within the constraints of a routine brain study. Normal visualized paranasal sinuses. Normal calvarium and skull base. Normal visualized soft tissue structures. Normal visualized upper cervical spine. MRI/Brain W/WO Contrast IMPRESSION: 1. 2 x 1.7 x 1.8 cm posterior parafalcine solid enhancing meningioma encasing and obliterating a small portion of the superior sagittal sinus. This is in between both sides of the paracentral lobules without associated vasogenic edema of the underlying brain parenchyma. 2. No MRI evidence of venous infarct or any compromise of the cerebral venous outflow as there is hemodynamic balance of the cerebral venous draining system despite isolated occlusion and obliteration of a small portion of the superior sagittal sinus. 3. Normal MRI of the brain and remaining dural sinuses and cerebral draining venous system. Electronically Signed: Evangelist Cassidy MD at 8:28 EST , Service support ,
== END ==
PROVIDERS: PCP Family Medicine; Referring Provider Family Medicine; Visit Provider Family Medicine
DX: R51.9 Headache, unspecified (principal); R42 Dizziness and giddiness
CPT/HCPCS: 70553; A9575

== ENCOUNTER → 2020-04-30 15:37 | Outpatient (CLI) | payer OTHER, SELFPAY ==
[2019-12-06 11:22] VITALS: BMI 28.8
[2020-05-05 18:48] LABS: HPV Reflexed? NOT INDICATED
== END ==
PROVIDERS: PCP Family Medicine; Visit Provider Obstetrics & Gynecology
DX: Z12.4 Encounter for screening for malignant neoplasm of cervix (principal)
CPT/HCPCS: 88175; G0145

== ENCOUNTER → 2020-05-05 09:41 | Outpatient (CLI) | payer OTHER, SELFPAY ==
[2019-12-06 11:22] VITALS: BMI 28.8
[2020-05-05 11:30] LABS: Progesterone Level 9.09 ng/mL (See Comment)
[2020-05-05 11:31] LABS: Thyroid Stim Hormone (TSH) 2.18 uIU/mL (0.358-3.74)
== END ==
PROVIDERS: PCP Family Medicine; Visit Provider Obstetrics & Gynecology
DX: N92.5 Other specified irregular menstruation (principal)
CPT/HCPCS: 36415; 84144; 84443

== ENCOUNTER 2020-07-18 15:05 | Outpatient (RCR) | payer OTHER, SELFPAY ==
[2019-12-06 11:22] VITALS: BMI 28.8
== END 2020-09-30 23:59 ==
LOC: IMMUN 15:05
PROVIDERS: PCP Family Medicine; Visit Provider Family Medicine
DX: Z23 Encounter for immunization (principal)
CPT/HCPCS: 0001A; 0002A; 91300

== ENCOUNTER 2021-06-05 17:28 | Outpatient (CLI) | payer OTHER, SELFPAY ==
--- NOTE | 2021-06-05 | EMB_PTH ---
PATIENT: SELENE BAIRES LOC: [facility] U#:[id number] AGE/SX: 40/F ROOM: RE06/05/[address]: Dr. Nova Hinkle DO : 1980 BED: DIS: 06/05/2021 SPEC #: [id number] RECD: 06/05/21 17:28 STATUS: RAFIA MARII #: [id number] KANDACE: 06/05/21 00:[address]: Nova Hinkle DEPT: SURGICAL PATHOLOGY RECD BY: Anshul Small ENTERED: 06/08/21 11:06 SP TYPE: ENDOM BX/C KARI DR: Dr. Bao Vazquez DO Tissues: Endometrium, NOS Procedures: Surgery Specimen Level IV HEADER OPERATION: Endometrial biopsy PRE-OP DIAGNOSIS: Heavy menses TISSUE SUBMITTED: Endometrial lining MICROSCOPIC DIAGNOSIS Endometrium, biopsy: Proliferative endometrium with focal glandular breakdown. AM:becka 06/09/2021 MICROSCOPIC DESCRIPTION Slides are reviewed. GROSS DESCRIPTION Received is one container labeled with the patient's name and not further designated. The specimen consists of multiple irregular fragments of real-pink soft tissue that in aggregate measure 1 x 1 x 0.1 cm. The specimen is totally submitted in one cassette. / SJ:becka 06/08/2021 TC:5 CPT: 81000
== END 2021-06-05 23:59 | disposition home or self-care (01) ==
LOC: LABSPEC 06-08 08:03
PROVIDERS: PCP Family Medicine; Visit Provider Obstetrics & Gynecology
DX: N92.0 Excessive and frequent menstruation with regular cycle (principal)
CPT/HCPCS: 88305

== ENCOUNTER 2021-07-07 10:13 | Day surgery (SDC) | payer OTHER, SELFPAY ==
[2021-07-07] VITALS (8 sets, daily range): BP systolic 111–134; BP diastolic 64–84; PULSE 61–82; RESP 14–20; TEMP 36.6–36.8; O2SAT 99–100; BMI 24.7
--- NOTE | 2021-07-07 09:24 | HP.PCM_ITS ---
History and Physical Date of Admission: 07/07/21 MR#:[id number]:[id number]: SELENE BAIRESRep #:[id number]:[id number] Provider:Dr. 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 Required: No Is patient in pain?: No Allergies No Known Allergies Allergy (Verified 05/27/21 14:11) Medications albuterol 90 mcg/actuation aerosol inhaler mcg INHALATION 12/06/19 [History Confirmed 05/27/21] levothyroxine 88 mcg tablet 88 mcg PO DAILY 12/06/19 [History Confirmed 05/27/21] mometasone-formoterol HFA 100 mcg-5 mcg/actuation aerosol inhaler 2 puff INHALATION BID 12/06/19 [History Confirmed 05/27/21] Post menopausal: No Patient : No : No PFSH Medical History Asthma Back problem Chronic headaches Endometrial thickening on ultra sound Endometriosis H/O urinary tract infection Hypothyroidism (acquired) Menorrhagia Right ovarian cyst Seasonal allergies Thyroid disease Vision problems Surgical History H/O laparoscopy H/O total cystectomy History of ankle surgery Family History Mother Cancer leukemia Hyperlipidemia Father Hyperlipidemia Social History Smoking Status: Never smoker alcohol intake: current substance use type: does not use caffeine: Yes what type of physical activity do you participate in: walking and weight training seatbelt use: always do you feel safe at home: Yes additional social history: [employer]- Self Employed Patient is currently unemployed HPI heavy menses Details: SELENE BAIRES is a 40 year old who presents for relentless heavy periods. 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 She has a h/o 1vaginal delivery and is no longer interested in trying for another baby. She states that she is not yet ready for a hysterectomy and has tried hormonal therapy and lysteda without much success. History 1 Elective abortions Hx Para 1 Spontaneous abortions Hx # Term Pregnancies Ectopic pregnancies Hx # Pregnancies Multiple births # of living children Past Pregnancies Del. Date Name GA/Weeks Outcome Route Bth Weight Gen [facility] Evel[facility] 2018 38 live - 5lbs 14oz Female epidural [facility] Delivery Date: pre E induction at 38w [place] ROS Const ROS Unobtainable: All systems reviewed & are unremarkable except as noted in H Resp Resp: Reports system reviewed and no additional complaints, except as documented; Denies cough GI GI: Reports as per HPI Psych Psych: Reports system reviewed and no additional complaints, except as documented Exam Const General: cooperative, healthy appearing, comfortable and no acute distress Resp Effort & Inspection: normal respiratory effort Skin General: no rashes or lesions noted Psych Appearance: grossly normal Speech and Movement: speech and movement normal Coding Level of Care Code Off vis,est,level 3 Diagnoses Heavy menses N92.0 Endometriosis N80.9 Assessment and Plan Assessment and Plan (1) Heavy menses: Status: Acute Comment: tranexamic acid. declines contraception (2) Endometriosis: Status: Acute Comment: Plan - Dr. Nova Hinkle, DO: pt would like to try for an ablation EMB was benign ultrasound: 7.6 x 4.9 x 4.8 cm uterus Electronically signed by Nova Hinkle DO>Date _ 07/07/2021
[2021-07-07 10:42] LABS: Internal QC Validated? YES +Cl - CLEAR BKGD
[2021-07-07] MEDS: Lactated Ringers 1,000 ML 125 ML IV ×2 (10:45→14:54)
[2021-07-07 10:50] LABS: Pregnancy, Urine Negative Negative
--- NOTE | 2021-07-07 11:59 | SUR.PREOP ---
pt given update about surgery delay. dr horton will be here around 1230 instead of 1200
--- NOTE | 2021-07-07 12:00 | EMB_PTH ---
PATIENT: SELENE BAIRES LOC: [facility] U#:[id number] AGE/SX: 40/F ROOM: RE07/07/[address]: Dr. Nova Hinkle DO : 1980 BED: DIS: 07/07/2021 SPEC #: [id number] RECD: 07/07/21 14:23 STATUS: RAFIA REAzucena #: [id number] KANDACE: 07/07/21 12:[address]: Nova Hinkle DEPT: SURGICAL PATHOLOGY RECD BY: Winnie Lambert ENTERED: 07/08/21 09:13 SP TYPE: ENDOM BX/C KARI DR: Dr. Bao Vazquez DO Tissues: A - Endometrium, NOS B - Fallopian tube Procedures: Surgery Specimen Level II Surgery Specimen Level IV HEADER OPERATION: Hysteroscopy, D & C, endometrial ablation Yumi, laparoscopic salpingectomy PRE-OP DIAGNOSIS: Abnormal uterine bleeding TISSUE SUBMITTED: A ? Endometrial curettings, B ? Bilateral fallopian tubes MICROSCOPIC DIAGNOSIS A. Endometrium, curettings: Secretory endometrium. B. Right and left fallopian tubes, bilateral salpingectomies: Complete cross-sections of fallopian tubes with benign paratubal cysts. AM:becka 07/09/2021 MICROSCOPIC DESCRIPTION Slides are reviewed. GROSS DESCRIPTION A - Received in fixative is one container labeled with the patient's name and designated endometrial curettings. The specimen consists of multiple irregular fragments of light real soft tissue that in aggregate measure 3 x 1.5 x 0.1 cm. The specimen is totally submitted in one cassette. B - Received in fixative is one container labeled with the patient's name and designated bilateral fallopian tubes. The specimen consists of two fallopian tubes with an average length of 6 cm and has an average diameter of 0.5 cm. Both fallopian tubes have normal fimbriated ends. No mass lesions are identified. House Superintendent sections are submitted in two cassettes as follows: 1 - one fallopian tube, 2 - the other fallopian tube. / AM:becka 07/08/2021 TC:3 CPT: 97872, 35736 x2
--- NOTE | 2021-07-07 13:00 | SUR.PREOP ---
pt given update- assisted to the bathroom.
--- NOTE | 2021-07-07 13:07 | PCM.DC ---
Discharge Instructions Diet Discharge Diet: No restrictions Activity Discharge Activity: Return to Normal Activity, May Not Drive (for two weeks or while taking narcotic pain medications.), May Shower and May Take a Tub Bath (in 7 days) May resume sexual activity in: 1 week Weight Bearing Status: Full weight bearing Dressing / Incision Call your doctor if you observe: Using more than 1 pad per hour, Shortness of breath, Chest pain and Uncontrolled pain Suture Line Care: Avoid Pulling/Pushing and Avoid Pinching/Bending Remove Dressing in: 1 week (if present) Cleanse incision/area with: Soap & Water and Keep Dressing Clean & Dry Follow Up Care Please Follow Up With: Nova Hinkle DO When: Call to make an appointment with your doctor for a follow up incision check in 1-2 weeks. Test Results: Test results from this visit will be discussed in further detail at your follow-up appointment, if applicable. Discharge Plan Admission Primary Reason for Your Visit: uterine ablation and removal of fallopian tubes Attending Provider: Nova Hinkle Primary Care Provider: Bao Vazquez Instructions Patient Instructions: Endometrial Ablation, Pelvic Laparoscopy Discharge Orders/Prescriptions Prescriptions: New oxycodone-acetaminophen [Percocet] 5-325 mg tablet 1 tab PO Q4H PRN (Reason: pain) 7 Days Qty: 18 RF: 0 naproxen 500 MG tablet 500 mg PO BID PRN PRN (Reason: Pain) Qty: 30 RF: 0 Continued levothyroxine [Synthroid] 88 mcg tablet 88 mcg PO DAILY RF: 0 Dulera 100-5 mcg/actuation HFA aerosol inhaler 2 puff INHALATION BID RF: 0 albuterol 90 mcg/actuation aerosol inhaler 90 mcg/actuation aerosol 1 mcg INHALATION PRN PRN (Reason: Wheezing) RF: 0 Referrals / Follow Up: Bao Vazquez DO [Primary Care Provider] - Disposition Disposition (needs filled in before D/C Order can be placed): Home, Self Care
[2021-07-07] MEDS: Bupivacaine 0.25% 30 ML Vial (14:03)
--- NOTE | 2021-07-07 19:16 | PCM.OP.BLANK ---
Problems Associated Problem List Diagnoses (1) Endometriosis: (2) Heavy menses: (3) Infertility: Operative Report Date of Procedure: 07/07/21 Preoperative diagnosis: menorrhagia, infertility, pelvic pain, desires permanent sterility. Postoperative diagnosis: menorrhagia, infertility, pelvic pain, desires permanent sterility, and endometriosis surgery: hysteroscopy Dilation and curettage, laparoscopic bilateral salpingectomy surgeon: Dr. Nova Hinkle Do logging assistant: MEGAN Britt EBL: 10cc urine output: 25cc Complicatons: none Procedure: Patient was prepped and draped in a normal sterile fashion under MAC anesthesia. A weighted speculum was placed in the vagina and the anterior lip of the cervix was grasped with a single-tooth tenaculum. A paracervical block was placed with 1% lidocaine. Cervix was progressively dilated to allow passage of a 5 mm hysteroscope. The lining was fully visualized and noted to have . Uterine sounded to 9 cm. Curettage was performed and the specimen was sent to pathology. The Yumi device was opened and the cavity length was found to be 4 cm. Device was inserted into the uterus and balloon inflated and device deployed. Integrity of the cavity was confirmed and a 2 minute treatment cycle was completed without complication. Next, A uterine manipulator was place. Attention was then paid to the abdominal portion of the procedure and the umbilicus was elevated with towel clamps and injected with Marcaine and after a 5 mm incision was made and a and 5 mm optical trocar was placed under direct visualization was entered into the abdomen and insufflated with CO2 gas. A left lower quadrant 5 mm port and an alligator trocar suprapubically was placed under direct visualization. Uterus was well visualized and bilateral fallopian tubes identified and bilateral tubes were elevated and transecting across the mesosalpinx and the attachment to the uterine corpus bilaterally the tubes were removed without complication. Excellent hemostasis was noted. Fallopian tubes were removed through the lower port sites without complication. Liver and upper abdomen were visualized notably within normal limits and no other gross abnormalities were seen in the abdomen. All instruments removed from the abdomen after gas was desufflated. Port sites were closed with 3-0 Monocryl Steri's and op sites were applied. All instruments removed from the vagina and patient was awoken and taken recovery in stable condition. All instruments were removed from the vagina and excellent hemostasis was noted. Patient was awoken and taken to recovery in stable condition. Multi Select Codes Urinary/Genital Urinary/Genital CPT Codes: 49673 Yumi/Novasure and 80684 Laproscopic BS/O
== END 2021-07-07 23:59 | disposition home or self-care (01) ==
LOC: SDC 10:14 → AC 10:15
PROVIDERS: Anesthesiology; PCP Family Medicine; Referring Provider Obstetrics & Gynecology; Visit Provider Obstetrics & Gynecology
PROC: 0U5B8ZZ Destruction of Endometrium, Via Natural or Artificial Opening Endoscopic (ICD-10-PCS; CPT 58558; principal; 2021-07-07 11:45)
PROC: (CPT 58661; 2021-07-07 11:45)
DX: Z30.2 Encounter for sterilization (principal); N83.8 Other noninflammatory disorders of ovary, fallopian tube and broad ligament; N97.9 Female infertility, unspecified; E03.9 Hypothyroidism, unspecified; J45.909 Unspecified asthma, uncomplicated; Z79.899 Other long term (current) drug therapy
CPT/HCPCS: 58353; 58661; 00940; 81025; 87426; 88302; 88305; C9803; J7120; J2405

== ENCOUNTER → 2022-04-22 | Outpatient (CLI) | payer OTHER, SELFPAY ==
--- NOTE | 2022-04-22 13:44 | RAD_ITS ---
EXAM: XR LUMBOSACRAL SPINE, 4 OR 5 VIEWS CLINICAL INDICATION: LOW BACK PAIN TECHNIQUE: Frontal, lateral and bilateral oblique views of the lumbar spine. This report was created using [employer] report generation technology. COMPARISON: None. FINDINGS: VERTEBRAE: Mild lower lumbar facet arthritis. Preserved vertebral body height. No fracture. No spondylolisthesis. Preservation of the normal lumbar lordosis. OTHER BONES/JOINTS: The visualized lower ribs are intact. DISC SPACES: Mild degenerative disc space narrowing with marginal osteophytes at the T12/L1 level. Lumbar disc spaces are preserved. GASTROINTESTINAL TRACT: Unremarkable as visualized. Included bowel gas pattern is non-obstructive. OTHER: The SI joints are unremarkable. No renal calculi are seen. RAD/L/S Spine Min 4 Views IMPRESSION: No acute findings in the lumbar spine. Mild degenerative disc disease at the T12/L1 level. Mild lower lumbar facet arthritis. Electronically Signed: Mundo Duran MD at 1:19 EST ,
== END | disposition home or self-care (01) ==
LOC: MTRAD 13:42
PROVIDERS: PCP Family Medicine; Referring Provider Family Medicine; Visit Provider Family Medicine
DX: M54.50 Low back pain, unspecified (principal)
CPT/HCPCS: 72110

== ENCOUNTER → 2022-04-22 | Outpatient (CLI) | payer OTHER, SELFPAY ==
[2022-04-22 15:07] LABS: Color, Urine Yellow (Yellow); Glucose, Dipstick Normal (Normal); Ketone-Dipstick Negative (Negative); Leukocyte Esterase-Dipstick 100 /ul (Negative); Nitrite-Dipstick Negative (Negative); Occult Blood-Urine 10 /ul (Negative); Protein-Dipstick 15 mg/dl (Negative); Urine Bilirubin Dipstick Negative (Negative); Urine Clarity Clear (Clear); Urine Urobilinogen Normal (Normal); Urine pH 6.5 (5.0 - 8.0)
[2022-04-22 15:19] LABS: Absolute Neutrophil Count 9.8 X10^3/uL (2.0-7.7); Basophil# 0.16 X10^3/uL; Basophil% 1.1 % (0-1); Eosinophil# 0.63 X10^3/uL; Eosinophils% 4.2 % (0-5); Hematocrit 42.8 % (37-47); Hemoglobin 15.2 g/dL (12.0-15.0); Lymphocyte % 23.7 % (19-41); Mean Corp Hgb Conc 35.5 g/dL (32-36); Mean Corpuscular Hgb 29.9 pg (27.0-32.0); Mean Corpuscular Volume 84.3 fL (81-99); Mean Platelet Vol. 9.6 fl (6.2-12.0); Monocyte# 0.89 X10^3/uL; Monocyte% 5.9 % (0-10); NRBC Flagged by Analyzer 0 % (0-5); Neutrophil # 9.84 X10^3/uL (2.7-7.7); Neutrophil % 64.8 % (47-70); Platelet Count 312 K/mm3 (150-450); RBC Distribution Width CV 14.7 % (11.6-14.6); RBC Distribution Width SD 45.5 fl (35.1-43.9); Red Blood Count 5.08 M/mm3 (4.2-5.4); White Blood Count 15.2 K/mm3 (4.4-11.0)
[2022-04-22 15:30] LABS: ALB/GLOB Ratio 1.1 RATIO (0.9-2.4); AST(SGOT) 18 U/L (15-37); Alanine Aminotransfer ALT/SGPT 28 U/L (13-56); Albumin, Serum 3.8 g/dL (3.2-5.0); Alkaline Phosphatase 99 U/L (45-117); Anion Gap 8 (5-15); BUN 14 mg/dL (7-18); BUN/Creat Ratio 13.2 RATIO (10-20); Calcium,Total 9.5 mg/dL (8.5-10.1); Chloride 105 mmol/L (98-107); Creatinine, Serum 1.06 mg/dL (0.55-1.02); EST Glomerular Filtration Rate 60 mL/min (>60); Est Glom Filt Rate - Afr Amer 73 mL/min (>60); Globulin 3.6 g/dL (2.2-4.2); Glucose 78 mg/dL (74-106); Potassium 3.9 mmol/L (3.5-5.1); Protein, Total 7.4 g/dL (6.4-8.2); Sodium Level 137 mmol/L (136-145); T4 Free Direct 1.08 ng/dL (0.76-1.46); Thyroid Stim Hormone (TSH) 1.55 uIU/mL (0.358-3.74)
== END | disposition home or self-care (01) ==
LOC: BFHLAB 13:46
PROVIDERS: PCP Family Medicine; Visit Provider Family Medicine
DX: M54.50 Low back pain, unspecified (principal); R53.83 Other fatigue; E03.9 Hypothyroidism, unspecified
CPT/HCPCS: 36415; 80053; 81002; 84439; 84443; 85025; 87086

== ENCOUNTER 2022-04-27 08:00 | Outpatient (RCR) | payer OTHER, SELFPAY ==
--- NOTE | 2022-03-09 13:06 | HP.PTEVAL_ITS ---
Patient's Visit Information SELENE BAIRES is a 41 year old F referred to Physical Therapy by MARIA G LONG with a diagnosis of LOW BACK AND PELVIC FLOOR DYSFUNCTION. Date of Evaluation: 03/09/22 Physical Therapist: Sonal Salinas PT, Cert MDT - Visit Plan Frequency: 1x/Week Duration: 8-12 WKS Plan: POSTURE CORRECTION AND INSTRUCTION IN APPROPRIATE BODY MECHANICS AND APPROPRIATE ACTIVITY MODIFICATIONS. CONSIDER. MANUAL PF THERAPY FOR STRENGTHENING, LENGTHENING/RELAXATION AND ENDURANCE TRAINING. HEALTHY BLADDER HABBIT EDUCATION. TRAINING IN COORDINATION OF PELVIC FLOOR MUSCULATURE WITH HIP AND CORE (TRANSVERSE ABDOMINUS) MUSCULATURE. POSTURE CORRECTION/STRENGTHENING. CORE STRENGTHENING. FREIDA LE ROM, STRETCHING AND STRENGTHENING. TRAINING IN ABDOMINAL CAVITY PRESSURE MGMT WITH ADL'S. 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 Present symptoms: LOW BACK PAIN. RIGHT THIGH PAIN > LEFT THIGH PAIN. SOMETIMES TINGLING IN TOES FREIDA. FREIDA HIP PAIN. Present since: CHRONIC LBP. SEPTEMBER 2021 BECAME MORE CONSTANT. Pain Scale: WORST 6/10, LEAST 3/10. Currently: 5/10. Is it getting better, worse or staying the same: STAYING THE SAME. Commenced as a result of: NO APPARENT REASON. Symptoms at onset: MORE INTENSE LBP. Worse: SITTING, DRIVING, BENDING OVER, CERTAIN EXERCISES I GET A JOLT. Better: MOVING, WALKING. Disturbed sleep: YES. Previous history/Previous treatment: CHIROPRACTIC, MASSAGE. Treatment this episode: CHIROPRACTIC, MASSAGE, PCP CONSULT IN NOVEMBER - MUSCLE RELAXER - LITTLE BENEFIT. Coughing/sneezing/straining: NEGATIVE. Gait: NORMAL. Bowel or Bladder Dysfunction: NO BOWEL INCONTINENCE. SLIGHT URINARY LEAKING WITH COUGHING OR HARD LAUGHING AT TIMES. Accidents: NO. Unexplained weight loss: NO. Imaging: RECENT X-RAY OF SPINE AT [facility] BUT PATIENT UNSURE OF RESULTS OTHER THAN DEGENERATION IN LUMBAR SPINE AND SPUR IN NECK. PMH/Recent major surgery: AUGUST 2021 ABLATION SURGERY FOR ENDOMETRIOSIS BY DR. SMITH. H/O 2 D/C'S ALSO. HYPOTHYROIDISM. - Objective Sitting/Standing Posture: FAIR. NO RELEVENT LATERAL SHIFT. Active Correction of posture: WORSE. Other Observations: INDEP GAIT AND TRANSFERS. Sensory deficit: FREIDA LE LIGHT TOUCH SENSATION GROSSLY INTACT AND SYMMETRICAL INCLUDING FEET AND TOES. ROM deficit: TIGHT FREIDA LE HS AND CALVES. TIGHT FREIDA LE HIP ADDUC TORS. TIGHT L HIP ROTATION COMPARED TO RIGHT. Motor deficit: FREIDA LE'S GROSSLY 5/5 WITH MMT'ING. SUBJECTIVELY PATIENT HAS APPROX 3-4 SEC PF ENDURANCE. Reflexes: NT. Dural Signs: NEGATIVE FREIDA LE'S. Lumbar mvmt loss: flex - NIL. ext - MIN. R SG - MIN. L SG - MIN. Core strength: FAIR. FUNCTIONAL SCREEN: Incontinence Impact Questionnaire Score: 0. Urogenital Distress Inventory Score: 1. TREATMENT: NEUROMUSCULAR REEDUCATION - RETRAINING OF MVMT AND POSTURE FOR SITTING, LYING AND STANDING ACTIVITIES. INITIATED HEP WITH QUICK FLICK KEGELS X 8, 3 TIMES A DAY AND TRADITIONAL KEGELS X 3 SEC, X 10 REPS 3 TIMES A DAY. WRITTEN HEP INSTRUCTION GIVEN. - Balance/Special Test Scores Oswestry Low Back Score: 12 - Goals Goal 1:: DECREASE C/O LOW BACK, HIP AND THIGH PAIN Goal Time Frame: 6-8 Weeks Goal 2:: IMPROVE PERSONAL CARE, LIFTING, SITTING, SLEEP, SOCIAL LIFE, TRAVEL AND WORK/HOMEMAKING FUNCTION. Goal Time Frame: 6-8 Weeks Goal 3:: DECREASE URINARY LEAKAGE EPISODES WITH COUGHING AND LAUGHING. Goal Time Frame: 6-8 Weeks Goal 4:: PATIENT WILL BE INDEP WITH A HEP FOR CONTINUED IMPROVEMENT ONCE FORMAL PHYSICAL THERAPY CONCLUDES. Goal Time Frame: 6-8 Weeks - Anticipated Interventions Patient/Client Instruction: Educate patient on: Condition, Plan of Care, Risk Factors For the Purpose of:: To improve self management Therapeutic Exercise to Include: Strength training, Endurance training, Coordination, Body mechanics, Postural training, Flexibilty training, Neuromotor development, Dynamic Lumbar Stabilization For the Purpose of:: To increase ROM, To improve muscle performance and motor function, To increase tolerance to activity/condition/position, To improve ability of physical actions for home/community/work/leisure Manual Therapy Techniques to Include: Soft tissue mobilization Comment: BIOFEEDBACK For the Purpose of:: To increase ROM, To improve nutrient delivery to tissue, To improve muscle performance and motor function Thank you for the opportunity to evaluate your patient. For Medicare and Medicare HMO plans, please review the plan of care and approve it. It will need to be FAXED BACK to us at [phone] for Medicare purposes. For Medicare only, by signing this I certify the plan of care. Please let me know if there are questions or concerns regarding this plan of care. Physician Signature: Date:
--- NOTE | 2022-07-21 13:38 | HP.PT.NRP ---
SELENE BAIRES was seen in my office for initial evaluation on 03/09/22. The following Plan of Care was established for this patient: Initial Frequency: 1x/Week Initial Duration: 8-12 WKS Patient/Client Instruction: Educate patient on: Condition, Plan of Care, Risk Factors For the Purpose of:: To improve self management Therapeutic Exercise to Include: Strength training, Endurance training, Coordination, Body mechanics, Postural training, Flexibilty training, Neuromotor development, Dynamic Lumbar Stabilization For the Purpose of:: To increase ROM, To improve muscle performance and motor function, To increase tolerance to activity/condition/position, To improve ability of physical actions for home/community/work/leisure Manual Therapy Techniques to Include: Soft tissue mobilization Comment: BIOFEEDBACK For the Purpose of:: To increase ROM, To improve nutrient delivery to tissue, To improve muscle performance and motor function This patient was last seen in our office 04/27/22. Pertinent comments regarding their Physical therapy will appear below: This patient has not returned to Physical Therapy and is appropriate to return to MD for further follow-up as needed. At this point I will be discontinuing this patient from physical therapy. I would be happy to see this patient again in the future if found appropriate by the physician. Thank you! Sonal Salinas, PT, Cert MDT Balance/Gait/Functional tests - Balance/Special Test Scores Oswestry Low Back Score: 12
== END 2022-04-27 19:00 | disposition home or self-care (01) ==
LOC: PT 08:00
PROVIDERS: PCP Family Medicine
DX: M54.50 Low back pain, unspecified (principal); M99.05 Segmental and somatic dysfunction of pelvic region
CPT/HCPCS: 97014; 97035; 97162; 97530; G0283

== ENCOUNTER → 2022-04-27 | Outpatient (CLI) | payer OTHER, SELFPAY | END | disposition home or self-care (01) | LOC: LABSPEC 10:13 | PROVIDERS: PCP Family Medicine; Visit Provider Family Medicine | DX: R31.29 Other microscopic hematuria (principal) | CPT/HCPCS: 87086; 87088 ==

== ENCOUNTER → 2022-04-30 | Outpatient (CLI) | payer OTHER, SELFPAY ==
--- NOTE | 2022-04-30 17:30 | MRI_ITS ---
STUDY: MRI LUMBAR SPINE WITHOUT CONTRAST REASON FOR EXAM: Female, 41 years old. LBP TECHNIQUE: Standardized fat and water weighted pulse sequences were obtained in the sagittal and axial planes. COMPARISON: None FINDINGS: T12-L1: Normal endplates. Normal disc height, hydration and morphology. Normal bilateral facet joints. Normal central canal and bilateral lateral recesses. Normal bilateral intervertebral neural foramina. Normal lumbar lordosis. There is no substantial scoliosis. Normal conus medullaris that terminates at L1. L1-2: Normal endplates. Normal disc height, hydration and morphology. Normal bilateral facet joints. Normal central canal and bilateral lateral recesses. Normal bilateral intervertebral neural foramina. L2-3: Normal endplates. Normal disc height, hydration and morphology. Normal bilateral facet joints. Normal central canal and bilateral lateral recesses. Normal bilateral intervertebral neural foramina. L3-4, L4-5: Degenerative disc disease with small circumferential disc bulge. Superimposed small left foraminal disc herniation resulting in mild narrowing of the left intervertebral neural foramina at both levels. L5-S1: Normal endplates. Normal disc height, hydration and morphology. Normal bilateral facet joints. Normal central canal and bilateral lateral recesses. Normal bilateral intervertebral neural foramina. Normal visualized sacral ala. Normal visualized paraspinous soft tissue structures. MRI/Spine Lumbar (Routine) IMPRESSION: Normal unenhanced MR examination of the lumbar spine. Electronically Signed: Elbert Ackerman MD at 7:57 EST ,
== END | disposition home or self-care (01) ==
LOC: MRI 17:02
PROVIDERS: PCP Family Medicine; Visit Provider Family Medicine
DX: M54.17 Radiculopathy, lumbosacral region (principal); M54.50 Low back pain, unspecified; D72.829 Elevated white blood cell count, unspecified
CPT/HCPCS: 72148

== ENCOUNTER → 2022-05-04 | Outpatient (CLI) | payer OTHER, SELFPAY | END | disposition home or self-care (01) | LOC: LABSPEC 13:17 | PROVIDERS: PCP Family Medicine; Visit Provider Obstetrics & Gynecology | DX: R10.2 Pelvic and perineal pain (principal) | CPT/HCPCS: 87070; 87077; 87205 ==

== ENCOUNTER → 2022-05-12 | Outpatient (CLI) | payer OTHER, SELFPAY ==
--- NOTE | 2022-05-12 12:23 | US_ITS ---
STUDY: ULTRASOUND OF THE FEMALE PELVIS - COMPLETE REASON FOR EXAM: Female, 41 years old. Pelvic pain. LMP: 04/25/2022. TECHNIQUE: Transabdominal and Transvaginal TECHNICAL QUALITY: Adequate. COMPARISON: Comparison is made with prior study 12/14/2019. FINDINGS: The uterus is anteverted and is in a midline position. The uterus measures 8.3 cm x 5.5 cm x 4.2 cm. There is a Nabothian cyst of the cervix. The endometrium measures 2.6 mm in thickness, and is hyperechoic. There is no demonstrated endometrial mass. There is no demonstrated myometrial mass. I.U.D. - The patient does not have an I.U.D. The right ovary is visualized. The right ovary measures 5.4 cm x 4.6 cm x 3 cm. There is a 3.7 cm x 3 cm x 2.1 cm right ovarian cyst There is no visualized right adnexal mass or complex lesion. There is normal arterial and normal venous vascularity. The left ovary is visualized. The left ovary measures 2.2 cm x 2.3 cm x 1.9 cm. A dominant follicle measuring 1.4 cm x 1.75 x 1.1 cm is present. There is no visualized left adnexal mass or complex lesion. There is normal arterial and normal venous vascularity. There is no fluid in the cul-de-sac. The pre void volume of the bladder was 850 ml. Polycystic ovary disease: No. US/Pelvic (Non ) IMPRESSION: There is a 3.7 cm x 3 cm x 2.1 cm right ovarian cyst. Electronically Signed: Ritesh Douglas MD at 14:43 EST ,
== END | disposition home or self-care (01) ==
LOC: US 12:21
PROVIDERS: PCP Family Medicine; Visit Provider Obstetrics & Gynecology
DX: N83.201 Unspecified ovarian cyst, right side (principal)
CPT/HCPCS: 76830; 76856; 93976

== ENCOUNTER → 2022-05-24 | Outpatient (CLI) | payer OTHER, SELFPAY ==
[2022-05-24 12:17] LABS: Absolute Neutrophil Count 5.2 X10^3/uL (2.0-7.7); Basophil# 0.12 X10^3/uL; Basophil% 1.2 % (0-1); Eosinophil# 0.53 X10^3/uL; Eosinophils% 5.3 % (0-5); Lymphocyte % 32.2 % (19-41); Mean Corp Hgb Conc 34.9 g/dL (32-36); Mean Corpuscular Hgb 30.1 pg (27.0-32.0); Mean Corpuscular Volume 86.2 fL (81-99); Mean Platelet Vol. 10.5 fl (6.2-12.0); Monocyte# 0.91 X10^3/uL; Monocyte% 9.2 % (0-10); NRBC Flagged by Analyzer 0 % (0-5); Neutrophil # 5.16 X10^3/uL (2.7-7.7); Neutrophil % 51.9 % (47-70); Platelet Count 234 K/mm3 (150-450); RBC Distribution Width CV 15.1 % (11.6-14.6); RBC Distribution Width SD 47.3 fl (35.1-43.9); Red Blood Count 4.99 M/mm3 (4.2-5.4); White Blood Count 9.9 K/mm3 (4.4-11.0)
[2022-05-24 12:57] LABS: LDH 155 U/L (84-246)
[2022-05-26 14:10] LABS: PROEL- A/G Ratio 1.4 (0.7-1.7); PROEL- Albumin 3.8 g/dL (2.9-4.4); PROEL- Alpha-1 Globulin 0.2 g/dL (0.0-0.4); PROEL- Alpha-2 Globulin 0.6 g/dL (0.4-1.0); PROEL- Globulin, Total 2.8 g/dL (2.2-3.9); PROEL- TOTAL PROTEIN 6.6 g/dL (6.0-8.5); PROELU- Albumin, Urine 12.4 % (.); PROELU- Alpha-1-Globulin,Ur 7.6 % (.); PROELU- Alpha-2-Globulin,Ur 16.7 % (.); PROELU- Gamma Globulin, Ur 31.3 % (.)
[2022-05-26 16:17] LABS: Total Protein, Ur < 4.0 mg/dL (Not Estab.)
== END | disposition home or self-care (01) ==
LOC: BFHLAB 11:06
PROVIDERS: PCP Family Medicine; Visit Provider Family Medicine
DX: D72.829 Elevated white blood cell count, unspecified (principal); M54.9 Dorsalgia, unspecified
CPT/HCPCS: 36415; 83615; 84165; 84166; 85025

== ENCOUNTER → 2022-06-09 | Outpatient (CLI) | payer OTHER, SELFPAY ==
--- NOTE | 2022-06-09 15:08 | CT_ITS ---
STUDY: CT ABDOMEN AND PELVIS WITH CONTRAST REASON FOR EXAM: Female, 41 years old. ABD PAIN RADIATION DOSAGE (If Supplied By Facility): CTDIvol = ( 13.59 ) mGy, DLP = ( 925.6 ) mGycm TECHNIQUE: Transaxial images were obtained from the dome of the diaphragm to the symphysis pubis with oral contrast. Oral and amp;amp; IV Readi-CAT and amp;amp; 100mL Isovue-300 was administered. Sagittal and coronal images were reconstructed. Individualized dose optimization techniques were used for this CT. COMPARISON: None. FINDINGS: The visualized lung bases are unremarkable. The visualized portions of the heart are within normal limits. Normal liver. Normal gallbladder and extrahepatic biliary system. Normal spleen. Normal pancreas. Normal bilateral adrenal glands. Normal right kidney. Normal left kidney. Normal visualized stomach. Normal small intestine. Normal colon. The appendix is visualized and appears normal. Normal abdominal aorta. Normal inferior vena cava. Normal retroperitoneum. Normal urinary bladder. A dominant follicle in the left ovary is visualized measuring 1.8 cm. There is also evidence of a 3.1 cm x 3.2 cm cyst in the right ovary. Normal abdominal wall. Normal osseous structures. CT/Abdomen/Pelvis WITH Contrast IMPRESSION: Right ovarian cyst. Dominant follicle is seen in the left ovary. Electronically Signed: Ritesh Douglas MD at 15:38 EST ,
== END | disposition home or self-care (01) ==
LOC: CT 15:06
PROVIDERS: PCP Family Medicine; Referring Provider Family Medicine; Visit Provider Family Medicine
DX: R10.9 Unspecified abdominal pain (principal); D72.829 Elevated white blood cell count, unspecified
CPT/HCPCS: 74177; Q9967

== ENCOUNTER 2022-08-10 05:33 | Day surgery (SDC) | payer OTHER, SELFPAY ==
[2022-08-04 16:18] LABS: Hemoglobin 14.7 g/dL (12.0-15.0); Mean Corp Hgb Conc 33.4 g/dL (32-36); Mean Corpuscular Hgb 29.2 pg (27.0-32.0); Mean Corpuscular Volume 87.3 fL (81-99); Mean Platelet Vol. 9.4 fl (6.2-12.0); Platelet Count 248 K/mm3 (150-450); RBC Distribution Width CV 14.9 % (11.6-14.6); Red Blood Count 5.04 M/mm3 (4.2-5.4); White Blood Count 10.8 K/mm3 (4.4-11.0)
[2022-08-04 17:03] LABS: Magnesium 2.2 mg/dL (1.6-2.6); Thyroid Stim Hormone (TSH) 1.92 uIU/mL (0.358-3.74)
[2022-08-10] VITALS (13 sets, daily range): BP systolic 117–132; BP diastolic 66–80; PULSE 65–90; RESP 14–18; TEMP 23.3–37.1; O2SAT 96–100; BMI 27.0
[2022-08-10 06:07] LABS: Internal QC Validated? YES +Cl - CLEAR BKGD
[2022-08-10 06:08] LABS: Pregnancy, Urine Negative Negative
[2022-08-10] MEDS: Lactated Ringers 1,000 ML 40 ML IV (06:18)
[2022-08-10] MEDS: dexAMETHasone 4 MG/ML Vial 8 MG IV (06:19)
[2022-08-10] MEDS: Magnesium 1 GM over 15 mins IV (06:30)
[2022-08-10] MEDS: Gabapentin 600 MG Tablet PO (06:33)
[2022-08-10] MEDS: Acetaminophen 500 MG Tablet 1000 MG PO (06:34)
[2022-08-10] MEDS: Celecoxib 200 MG Capsule 400 MG PO (06:34)
[2022-08-10] MEDS: Phenazopyridine 95 MG Tablet 190 MG PO (06:35)
[2022-08-10 06:51] LABS: Bedside Glucose 96 mg/dL (74-106)
--- NOTE | 2022-08-10 07:29 | PCM.HP.BLA ---
History and Physical Date of Admission: 08/10/22 Intake Vital Signs ? 08/04/2314:17 08/04/2314:21 Height 6 ft 6 ft Weight: ? 199 lb 6 oz BMI ? 27.0 BP ? 124/83 H Intake Visit Reasons:?TRH right ovarian cystectomy, cysto Law Secretary Required: No Is patient in pain?: No Allergies No Known Allergies Allergy (Verified 08/04/22 15:21) Medications albuterol 90 mcg/actuation aerosol inhaler 1 mcg inhalation PRN PRN Wheezing 12/06/19 [History Confirmed 08/04/22] levothyroxine 88 mcg tablet (Synthroid) 88 mcg PO DAILY 12/06/19 [History Confirmed 08/04/22] mometasone-formoterol HFA 100 mcg-5 mcg/actuation aerosol inhaler (Dulera) 2 puff inhalation BID 12/06/19 [History Confirmed 08/04/22] naproxen 500 mg tablet 500 mg PO BID PRN PRN Pain #30 tabs 07/07/21 [Rx Confirmed 08/04/22] multivitamin 1 tab PO DAILY 07/28/22 [History Confirmed 08/04/22] Post menopausal: No Patient : No : No PFSH Medical History? Alcohol use Asthma Back problem Chronic headaches Endometrial thickening on ultra sound Endometriosis H/O urinary tract infection Hypothyroidism (acquired) Menorrhagia Migraine headache MRSA infection Non-smoker Right ovarian cyst Seasonal allergies Thyroid disease Wears contact lenses Wears glasses Surgical History? H/O laparoscopy H/O total cystectomy History of ankle surgery Hx of bilateral salpingectomy Family History? Mother Cancer ?? ? leukemia HyperlipidemiaFather Hyperlipidemia Social History? Smoking Status:? Never smoker alcohol intake:? current substance use type:? does not use caffeine:? Yes what type of physical activity do you participate in:? walking and weight training seatbelt use:? always do you feel safe at home:? Yes additional social history:? [employer]- Self Employed Patient is currently unemployed HPI TRH right ovarian cystectomy, cysto Details: SELENE BAIRES is a 41 year old (vag del) who presents for preop exam.? Initially we thought she could have post ablation syndrome or exacerbation of endometriosis.? She states that she feels bloated and tender all the time. She has a hard time working out due to pain and has been gaining weight. She saw her back doctor who told her that he believes her pain is likely endometriosis related and that we should really revisit treatment options here. She states that she is now ready to proceed with the hysterectomy. Her uterus on ultrasound is 8 cm and there is a right ovarian cyst measuring 3 cm. Her surgical history includes 3 laparoscopies (2 for endometriosis and one for tubal ligation) She is status post ablation in 2021. History ? ? ? 1 ? Elective abortions ? Hx Para ? ? ? 1 ? Spontaneous abortions ? Hx # Term Pregnancies ? Ectopic pregnancies ? Hx # Pregnancies ? Multiple births ? # of living children ? Past Pregnancies Del. Date Name GA/Weeks Outcome Route Bth Weight Infant Gen Labor Lgth Anesthesia Del Locatn Provider FOB Unknown Eveline 2019 38 live - 5lbs 14oz [facility] ? [facility] ? Delivery Date:?? Last Updated by: Jo Montejo ? ? ? pre E induction at 38w ROS Const ROS Unobtainable: All systems reviewed & are unremarkable except as noted in H Resp Resp: Reports system reviewed and no additional complaints, except as documented; Denies cough GI GI: Reports as per HPI Psych Psych: Reports system reviewed and no additional complaints, except as documented Exam Const General: cooperative, healthy appearing, comfortable and no acute distress Resp Effort & Inspection: normal respiratory effort Skin General: no rashes or lesions noted Psych Appearance: grossly normal Speech and Movement: speech and movement normal Coding Level of Care Code Off vis,est,level 4 Diagnoses Endometriosis? N80.9 Heavy menses? N92.0 History of tubal ligation? Z98.51 History of endometrial ablation? Z98.890 Pelvic pain? R10.2 Cervical motion tenderness? N94.9 Assessment and Plan Assessment and Plan (1) Endometriosis: ?Status:?Acute ?Comment: recommend pelvic us, discussed clomid for fertility (2) Heavy menses: ?Status:?Acute ?Comment: tranexamic acid.? declines contraception (3) History of tubal ligation: ?Status:?Acute (4) History of endometrial ablation: ?Status:?Acute (5) Pelvic pain: ?Status:?Acute (6) Cervical motion tenderness: ?Status:?Acute Plan After discussing the patient's diagnosis and treatment plan options, patient wishes to proceed with surgical management.? I have discussed with the patient the risks, benefits, and alternatives of the procedure which include but are not limited to risks of anesthesia, bleeding, infection, possible damage to bowel, bladder, or surrounding vasculature which could lead to additional surgery to evaluate any complications.? Patient agrees to procedure and wishes to proceed.? ACOG/uptodate references given for additional information regarding procedure.? plan for robotic hyst with right cystectomy and cystoscopy.
--- NOTE | 2022-08-10 07:30 | HYST_PTH ---
PATIENT: SELENE BAIRES LOC: [facility] – [place] U#:[id number] AGE/SX: 42/F ROOM: RE08/10/[address]: Dr. Nova Hinkle DO : 1980 BED: DIS: 08/10/2022 SPEC #: [id number] RECD: 08/10/22 11:01 STATUS: RAFIA REAzucena #: [id number] KANDACE: 08/10/22 07:[address]: Nova Hinkle DEPT: SURGICAL PATHOLOGY RECD BY: Winnie Lambert ENTERED: 08/10/22 11:25 SP TYPE: HYSTERECT OTHR DR: Dr. Bao Vazquez DO Tissues: Uterus, NOS Procedures: Surgery Specimen Level V HEADER OPERATION: ERAS, lap robotic hysterectomy, right oophorectomy, cystoscopy PRE-OP DIAGNOSIS: Endometriosis, heavy menses, history of tubal ligation and endometrial ablation, pelvic pain, cervical motion tenderness TISSUE SUBMITTED: Uterus and right ovary MICROSCOPIC DIAGNOSIS Uterus and right ovary, hysterectomy and right oophorectomy: Cervix ? acute and chronic inflammation and squamous metaplasia. Endometrium ? secretory endometrium. Myometrium - no pathologic diagnosis. Right ovary ? endometriotic cyst (3.5 cm in greatest dimension). - Physiologic follicular and corpus luteal cysts. SJ:rg 08/11/2022 MICROSCOPIC DESCRIPTION Slides are reviewed. GROSS DESCRIPTION Received in fixative is one container labeled with the patient's name and designated uterus and right ovary. The specimen consists of a hysterectomy specimen consisting of a uterus with cervix and right ovary. Fallopian tubes are not present in the specimen or in the container. The uterus with cervix weighs 105 gm and measures 9.5 x 7.0 x 4.5 cm. The serosal surface is rael, glistening. The ectocervical mucosa is unremarkable. The external os is oval and patulous in contour. The endocervical canal measures 3.0 cm in length and the endocervical mucosa is real, glistening and unremarkable. The triangular endometrial cavity measures 4.0 cm in length and 2.0 cm in width. The endometrium is real, glistening without any mass lesion and measures 0.1 cm in thickness. Sections of the uterine wall do not reveal any mass lesion and measures 2.5 cm in thickness. The soft, cystic ovary weighs 30 gm and measures 5.5 x 5.0 x 3.0 cm. The external surface is smooth and without any papillation. The external surface is inked black. Sections reveal a large cyst filled with blood and measuring 3.5 cm in greatest dimension. The inner cyst wall is smooth without any papillation. Administrative Support Coordinator sections are submitted in ten cassettes as follows: 1 - anterior cervix, 2 - posterior cervix, 3 & 4 - anterior uterine wall, 5 & 6 - posterior uterine wall, 7-10 - right ovary. / SJ:rg 08/11/2022 TC:5 CPT: 50274
[2022-08-10] MEDS: Cefazolin 2 GM in 0.9% Normal Saline 100 ML IV (07:38)
[2022-08-10] MEDS: Bupivacaine 0.25% 30 ML Vial (08:30)
[2022-08-10] MEDS: Ondansetron 4 MG/2 ML Vial IV (09:18)
--- NOTE | 2022-08-10 09:55 | PCM.OP.BLANK ---
Problems Associated Problem List Diagnoses (1) Endometriosis: (2) Heavy menses: (3) Infertility: (4) History of tubal ligation: (5) History of endometrial ablation: (6) Pelvic pain: (7) Cervical motion tenderness: Operative Report Date of Procedure: 08/10/22 Preoperative diagnosis:pelvic pain, endometriosis, right ovarian cyst Postoperative diagnosis: pain, endometriosis, right ovarian endometrioma Procedure: Total robotic hysterectomy right oophorectomy and cystoscopy Surgeon: Dr. Nova Hinkle DO Italian Teacher: MEGAN Em Anesthesia: General endotracheal intubation Estimated blood loss: 30cc Urine output:1100 Drains: None Implanted material: None Complications: None Findings: 8cm size uterus, normal appearing ovaries and tubes. On exploration of the abdominal cavity the uterus, adnexa, bowel, and liver were found to be normal with exception of endometriosis on the right ovary, endometriosis over the right ureter, in the cul-de-sac, and on the right broad ligament. Cystoscopy showed no evidence of leaking at approximately 250 cc of normal saline, positive ureteral orifices and jet flow are seen and no suture material was appreciated in the bladder. Specimens removed: Uterus and cervix, right ovary Reason for surgery: This is a 42-year-old G1, P1 who presented to my office with acute on chronic pelvic pain and symptoms of endometriosis. She had undergone a laparoscopy showing endometriosis and an ablation procedure. At the time she was not ready for a hysterectomy. Over the course of several months she developed worsening pain and requested a hysterectomy. the planned procedure is for a robotic hysterectomy the risks benefits and alternatives were discussed with the patient the patient had a clear understanding of the procedure and a consent form was signed. Procedure: The patient was placed in the dorsal low lithotomy position and prepped and draped in the normal sterile fashion both abdominally and in the perineum. Her legs were placed in stirrups a Schafer catheter was inserted into the urethra without difficulty. A weighted speculum was placed in the vagina and a single-tooth tenaculum was used to grasp the anterior lip of the cervix. An advincula uterine manipulator was inserted through the cervix without complication. It was then tied into place at the 2 and 10:00 locations on the cervix. Gloves were changed and attention was turned towards the abdomen. Approximately 23 cm above the pubic symphysis in the midline, and after Marcaine injection, a 8 mm incision was made. An 8 mm trocar was inserted through the laparoscope, then inserted into the abdomen under direct visualization using the laparoscope. Good abdominal placement was noted and no complications were appreciated. An air seal device was utilized to create pneumoperitoneum. At 12 cm lateral to the midline on the left and right sides 8 mm accessory ports were placed. Next a left upper quadrant 8 mm certified physical therapist assistant port site was placed. The patient was placed in steep Trendelenburg position. The robot was docked. The hysterectomy was initiated first by taking down the round ligament on each side using the vessel sealer device. There was noted to be endometriosis of the cul-de-sac, over right ureter, on the left broad ligament, and on the right ovary. The right ovary was the worst. The decision was made to remove the right ovary. The peritoneum between the round ligament and the IP ligament was opened using electrocautery and extended the length of the IP ligament. The IP ligament was then taken down using the vessel sealer device. These areas were freed without complication the broad ligament was then and taken down using the vessel sealer device. Next the bladder flap was taken down without complication. This was done using monopolar cautery to the level of the cervical vaginal junction. After the bladder flap was created, uterine vessels were then isolated and cauterized using the vessel sealer device and EndoShears. At this point the uterine vessels were taken down further starting from the ascending branch, dissecting along the edges of the cervix to the level of the cervical vaginal junction with hemostasis appreciated. The cervical vaginal junction was then using monopolar cautery in a circumferential pattern across the superior aspect of the cervix. The specimen was delivered through the vagina and sent to pathology. The remaining vaginal cuff was then closed using OV lock suture. This was performed in a running technique. Excellent hemostasis was obtained and good closure was noted. Irrigation was then performed. All operative sites were noted to be hemostatic. A cystoscopy was performed with a 70 degree cystoscope through the urethra into the bladder without complication. The bladder was instilled with approximately 250 cc of normal saline. Intraoperative images were made. Ureteral orifices and jets were identified. No suture material was appreciated in the bladder. The bladder was then drained and cystoscope was removed. The abdominal cavity was again examined using the laparoscope after the robot was undocked. All operative sites were noted to be hemostatic. The trochars were removed under direct visualization without complication and pneumoperitoneum was reduced. At this point the skin was then closed using 4-0 Monocryl subcuticular stitch and sealed with surgical glue. The patient tolerated the procedure well sponge lap and needle counts were correct x2 the patient was taken to the recovery room in stable condition. Multi Select Codes Urinary/Genital Urinary/Genital CPT Codes: 06817 Cystoscopy and 42700 TLH+BS/O <250gr uterus
--- NOTE | 2022-08-10 10:01 | DCINST_ITS ---
Discharge Instructions Diet Discharge Diet: No restrictions Activity May resume sexual activity in: 6 weeks Weight Bearing Status: Full weight bearing Dressing / Incision Call your doctor if your incision/area has: Continuous Slow Oozing, Sudden Increased Bleeding, Increased Pain/ Swelling, Increased Redness and Foul Smelling Discharge Call your doctor if you observe: Fever of 101 or Higher, Using more than 1 pad per hour, Shortness of breath, Chest pain and Uncontrolled pain Suture Line Care: Avoid Pulling/Pushing and Avoid Pinching/Bending Remove Dressing in: 1 week (if present) Cleanse incision/area with: Soap & Water and Keep Dressing Clean & Dry Follow Up Care Please Follow Up With: Nova Hinkle DO When: Call to make an appointment with your doctor for a postop visit in 2 and 6 weeks Test Results: Test results from this visit will be discussed in further detail at your follow- up appointment, if applicable. Discharge Plan Admission Primary Reason for Your Visit: robotic hysterectomy Attending Provider: Nova Hinkle Primary Care Provider: Bao Vazquez Discharge Orders/Prescriptions Prescriptions: New oxycodone-acetaminophen [Percocet] 5-325 mg tablet 1 tab PO Q4H PRN (Reason: pain) 7 Days Qty: 30 0RF Rx Instructions: 1-2 tabs q 4 hrs as needed for pain naproxen 500 mg tablet 500 mg PO BID PRN (Reason: pain) Qty: 30 0RF Continued levothyroxine [Synthroid] 88 mcg tablet 88 mcg PO DAILY Dulera 100-5 mcg/actuation HFA aerosol inhaler 2 puff INHALATION BID albuterol 90 mcg/actuation aerosol inhaler 90 mcg/actuation aerosol 1 mcg INHALATION PRN PRN (Reason: Wheezing) naproxen 500 MG tablet 500 mg PO BID PRN PRN (Reason: Pain) Qty: 30 0RF multivitamin Tablet 1 tab PO DAILY Other Ambulatory Orders: ,Urine (Routine) Timeframe: [id number] Facility: [facility] - Location: Laboratory Ordered By: Dr. Nova Hinkle Referrals / Follow Up: Bao Vazquez DO [Primary Care Provider] - Disposition Disposition (needs filled in before D/C Order can be placed): Home, Self Care
[2022-08-10] MEDS: Lactated Ringers @ 70 MLS/HR 70 ML IV ×2 (10:31→11:44)
[2022-08-10] MEDS: HYDROcodone Bitartrate/Apap 5/325 Tablet PO (12:19)
== END 2022-08-10 15:14 | disposition home or self-care (01) ==
LOC: SDC 05:34 → AC 05:34
PROVIDERS: Anesthesiology; PCP Family Medicine; Referring Provider Obstetrics & Gynecology; Visit Provider Obstetrics & Gynecology
PROC: 0UT94ZZ Resection of Uterus, Percutaneous Endoscopic Approach (ICD-10-PCS; CPT 58571; principal; 2022-08-10 07:10)
DX: N85.8 Other specified noninflammatory disorders of uterus (principal); N83.11 Corpus luteum cyst of right ovary; N97.9 Female infertility, unspecified; E03.9 Hypothyroidism, unspecified; J45.909 Unspecified asthma, uncomplicated; E07.9 Disorder of thyroid, unspecified; Z79.899 Other long term (current) drug therapy
CPT/HCPCS: 58571; S2900; 00840; 36415; 81025; 82962; 83735; 84443; 85027; 86850; 86900; 86901; 88307; J7120; J2405; J3475

== ENCOUNTER → 2023-06-29 | Outpatient (CLI) | payer OTHER, SELFPAY ==
--- NOTE | 2023-06-29 09:01 | RAD_ITS ---
INDICATION: CERVALGIA/CHRONIC RICE EXAMINATION/TECHNIQUE: X-RAY - XR Spine Cervical 4 or 5 Views COMPARISON: No relevant prior comparison study available FINDINGS: VERTEBRAE: Preserved vertebral body height. No fracture. Possible minimal anterolisthesis of C4 over C5. Straightening of the cervical spine. No significant facet arthropathy. DISCS: Mild narrowing of C5-C6 disc space. NECK SOFT TISSUES: No prevertebral soft tissue widening. LUNG APICES: Clear. RAD/Cerv Spine 4 or 5 Views IMPRESSION: Straightening of the cervical spine. Mild degenerative changes.. Electronically Signed: Milad Esquivel MD at 12:54 EST ,
== END | disposition home or self-care (01) ==
PROVIDERS: PCP Family Medicine; Referring Provider Family Medicine; Visit Provider Family Medicine
DX: M54.2 Cervicalgia (principal)
CPT/HCPCS: 72050

== ENCOUNTER → 2023-07-29 | Outpatient (CLI) | payer OTHER, SELFPAY ==
--- NOTE | 2023-07-29 10:14 | MRI_ITS ---
EXAM: MR HEAD WITHOUT AND WITH INTRAVENOUS CONTRAST CLINICAL INDICATION: Headaches. Known meningioma. TECHNIQUE: Multiplanar and multisequence MR images of the brain were obtained without and with intravenous contrast. CONTRAST: 15 mL of IV Clariscan. COMPARISON: MRI brain with and without contrast 04/11/2020. FINDINGS: BRAIN AND EXTRA-AXIAL SPACES: Solid enhancing meningioma in both sides of the falx cerebri. This traverses the superior sagittal sinus with near complete obliteration of the midportion of the superior sagittal sinus. This overlies the paracentral lobules with mild mass effect on the right paracentral lobule more than the left paracentral lobule. This measures approximately 2.1 x 2 x 2 cm. This is unchanged. No focal signal abnormalities throughout the brain parenchyma. There are no other enhancing lesions intra-axially or extra-axially. No intra- or extra-axial hemorrhage. No evidence of acute infarct. There is preservation of the blackwell/white matter interface. Posterior fossa structures are unremarkable. Ventricles are appropriate for age. No hydrocephalus. Basal cisterns are patent. SELLA: Unremarkable. Normal sella turcica, pituitary gland, infundibular stalk, optic chiasm and hypothalamus. AUDITORY SYSTEM: Unremarkable. The internal auditory canals are patent. BONES/JOINTS: Unremarkable. No discrete lytic or blastic abnormalities. SINUSES: Unremarkable as visualized. Clear. MASTOID AIR CELLS: Unremarkable as visualized. Clear. ORBITS: Unremarkable as visualized. Both globes, extraocular muscles, optic nerves and retrobulbar fat appear unremarkable. VASCULATURE: Unremarkable as visualized. Normal flow voids in the major intracranial circulation. MRI/Brain W/WO Contrast IMPRESSION: 1. Midline convexity solid enhancing meningioma across the falx cerebri causing mild mass effect on the right paracentral lobule more than the left paracentral lobule and near complete obliteration of the superior sagittal sinus. This meningioma measures 2.1 x 2 x 2 cm. No interval change. 2. No MRI evidence of suspicious dural sinus thrombosis. 3. No significant interval change when compared to 04/11/2020. Electronically Signed: Evangelist Cassidy MD at 15:31 EDT ,
== END | disposition home or self-care (01) ==
PROVIDERS: PCP Family Medicine; Referring Provider Family Medicine; Visit Provider Family Medicine
DX: D32.9 Benign neoplasm of meninges, unspecified (principal); R51.9 Headache, unspecified
CPT/HCPCS: 70553; A9575

== ENCOUNTER → 2023-08-23 | Outpatient (CLI) | payer OTHER, SELFPAY | END | disposition home or self-care (01) | PROVIDERS: PCP Family Medicine; Referring Provider Family Medicine; Visit Provider Family Medicine | DX: G47.10 Hypersomnia, unspecified (principal) | CPT/HCPCS: 95806 ==

== ENCOUNTER → 2023-10-03 | Outpatient (CLI) | payer OTHER, SELFPAY ==
[2023-10-03 09:36] LABS: Vitamin D,25 Hydroxy 49.8 ng/mL
[2023-10-03 10:05] LABS: Cholesterol 240 mg/dL (200); Glucose 96 mg/dL (74-106); High Density Lipoprotein 55 mg/dL; Thyroid Stim Hormone (TSH) 2.23 uIU/mL (0.358-3.74); Triglycerides 66 mg/dL; Very Low Density Lipoprotein 13 mg/dL (5-40)
== END | disposition home or self-care (01) ==
LOC: LAB 08:21
PROVIDERS: PCP Family Medicine; Referring Provider Obstetrics & Gynecology; Visit Provider Obstetrics & Gynecology
DX: Z13.220 Encounter for screening for lipoid disorders (principal); Z13.1 Encounter for screening for diabetes mellitus; Z13.29 Encounter for screening for other suspected endocrine disorder; Z13.21 Encounter for screening for nutritional disorder
CPT/HCPCS: 36415; 80061; 82306; 82947; 84443

== ENCOUNTER → 2023-10-05 | Outpatient (CLI) | payer OTHER, SELFPAY ==
--- NOTE | 2023-10-05 07:17 | BI_ITS ---
MAMMOGRAPHY - BILATERAL SCREENING REASON FOR EXAM: Female, 43 years old. Routine annual screening examination. PERTINENT HISTORY: Non-contributory. TECHNIQUE: Digital bilateral breast shante (3D mammographic acquisition) in the CC and MLO projections. 2-D mediolateral oblique (MLO) and craniocaudad (CC) views of both breasts were obtained. CAD: Full Field Digital Mammography with Computer Added Detection was performed. COMPARISON: None. Baseline examination. FINDINGS: Breast Composition: The breasts are heterogeneously dense, which may obscure small masses. There are no dominant masses or suspicious calcifications. No other significant abnormalities are identified. BI/SCRN MAMM (CAD)W/SHANTE BILAT IMPRESSION: Negative screening mammogram. Yearly followup mammogram recommended. (A) ASSESSMENT CATEGORY: Approximately 10% of breast cancers are not detected by mammography. A normal mammogram should not delay biopsy of a clinically suspicious abnormality. [id number] Electronically Signed: Ritesh Douglas MD at 8:31 EDT ,
== END | disposition home or self-care (01) ==
LOC: OPBI 07:15
PROVIDERS: PCP Family Medicine; Referring Provider Obstetrics & Gynecology; Visit Provider Obstetrics & Gynecology
DX: Z12.31 Encounter for screening mammogram for malignant neoplasm of breast (principal)
CPT/HCPCS: 77063; 77067

== ENCOUNTER → 2023-10-11 | Outpatient (CLI) | payer OTHER, SELFPAY | END | disposition home or self-care (01) | PROVIDERS: PCP Family Medicine; Referring Provider Family Medicine; Visit Provider Family Medicine | DX: G47.10 Hypersomnia, unspecified (principal) | CPT/HCPCS: 95810 ==

== ENCOUNTER 2024-06-29 05:26 | Day surgery (SDC) | payer OTHER, SELFPAY ==
[2024-06-29] VITALS (9 sets, daily range): BP systolic 100–120; BP diastolic 58–81; PULSE 60–64; RESP 16; TEMP 36.5–36.9; O2SAT 95–100; BMI 24.2
--- NOTE | 2024-06-29 06:22 | PCM.PRE.AN2 ---
ASA Classification* ASA Classification ASA Classification: 2 Assessment & Plan Anesthesia* Anesthesia Assessment Anesthesia Assessment: Discussed sedation and/or anesthesia options, risks, benefits, and alternatives with patient/parents/legal guardian/POA. Questions invited. The patient/parents/legal guardian/POA seems to understand and agrees to proceed with anesthesia plan. Reviewed the physical assessment, medical history, allergy history and patient home medications list prior to surgery/procedure/anesthetic and documented any changes. Performed airway and anesthesia risk assessments. Anesthesia Type Anesthesia Type: MAC History Source History Obtained from:: Patient and Chart Anesthesia Focused Assessment* Temperature: 97.7 F Pulse Rate: 64 Blood Pressure: 120/81 Respiratory Rate: 16 Pulse Ox: 100 Oxygen Delivery Method: Room Air Airway Assessment Mouth opens: >3 cm Mallampati Score: II Teeth Condition: Intact Neck Range of motion (ROM): Full ROM Focused Labs Anesthesia Preop lab: CBC WBC 10.8 K/mm3 (4.4-11.0) 08/04/22 16:03 08/04/22 RBC 5.04 M/mm3 (4.2-5.4) 08/04/22 16:03 08/04/22 Hgb 14.7 g/dL (12.0-15.0) 08/04/22 16:03 08/04/22 Hct 44.0 % (37-47) 08/04/22 16:03 08/04/22 Plt Count 248 K/mm3 (150-450) 08/04/22 16:03 08/04/22 CHEMISTRY Potassium 3.9 mmol/L (3.5-5.1) 04/22/22 13:47 04/22/22 Sodium 137 mmol/L (136-145) 04/22/22 13:47 04/22/22 Magnesium 2.2 mg/dL (1.6-2.6) 08/04/22 16:03 08/04/22 BUN 14 mg/dL (7-18) 04/22/22 13:47 04/22/22 Creatinine 1.06 mg/dL (0.55-1.02) H 04/22/22 13:47 04/22/22 Glucose 96 mg/dL (74-106) 10/03/23 08:28 10/03/23 POC Glucose 96 mg/dL (74-106) 08/10/22 06:27 08/10/22 TSH 2.23 uIU/mL (0.358-3.74) 10/03/23 08:28 10/03/23 COAG PT 12.7 SECONDS (11.7-14.9) 12/21/18 16:25 12/21/18 HCG, Quant < 1 mIU/mL (<9 non-preg) 09/22/17 14:35 09/22/17 Urine Test Negative Negative 08/10/22 05:58 08/10/22 Tst Clinic Negative 06/05/21 14:14 06/05/21 Pre-Assessment Diagnosis/Proposed Procedure Planned Operative Procedure(s): CSCOPE Anesthesia History Anesthesia History - admissions consultant: Anesthesia History - admissions consultant Hx Hospitalization No 06/27/24 15:27 Any Problems With Anesthesia No 06/27/24 15:27 Cholinesterase deficiency No 06/27/24 15:27 You/Your Family Experience No 06/27/24 15:27 fever (hyperthermia) with Relationship Recent Exposure to Contagious No 06/29/24 05:47 Disease Does patient have nerve No 06/27/24 15:27 stimulator Patient instructed to have device shut off --Does patient have Pacemaker No 06/29/24 05:47 or ICD? When Was Last Pacemaker Check QUESTION #4 FULL TEXT: You/Your Family Experience fever (hyperthermia) with Anesthesia Last Oral Intake Last Oral intake: Last Oral Intake NPO since 21:00 06/29/24 05:47 Meds taken in AM with sips of No 06/29/24 05:47 water? Meds patient instructed to take am of surgery PONV PONV - admissions consultant: PONV - admissions consultant Female Yes 06/27/24 15:27 HX of Motion Sickness No 06/27/24 15:27 HX of N/V After Surgery No 06/27/24 15:27 Non-Smoker Yes 06/27/24 15:27 Duration of Surgery greater No 06/27/24 15:27 than 60 minutes Number of Risk Factors 2 06/27/24 15:27 PONV Score Moderate Risk 06/27/24 15:27 Height & Weight Height & Weight: Anesthesia: Height & Weight Height 6 ft 06/29/24 05:47 Weight: 81 kg 06/29/24 05:47 Body Mass Index (BMI) 24.2 06/29/24 05:47 Respiratory Assessment Respiratory Assessment - admissions consultant: Respiratory Tract Infection Hx - admissions consultant Hx Respiratory Tract Infection No 06/27/24 15:27 STOP Sleep Apnea STOP Sleep Apnea - admissions consultant: STOP Sleep Apnea - admissions consultant Hx Hypertension No 06/27/24 15:27 Hx Sleep Apnea No 06/27/24 15:27 CPAP No 08/10/22 09:35 BIPAP No 05/18/22 11:49 Do you snore loudly (louder No 06/27/24 15:27 than talking or can be heard Do you often feel tired/ No 06/27/24 15:27 fatigued/ sleepy during daytime? Has anyone observed you stop No 06/27/24 15:27 breathing during sleep? STOP Results Negative 06/27/24 15:27 QUESTION #5 FULL TEXT : Do you snore loudly (louder than talking or can be heard through closed doors)? Tobacco Use History Tobacco Use History - admissions consultant: Tobacco Use History - admissions consultant Tobacco Use Smoking Status Never smoker 06/27/24 15:27 Hx Tobacco Use No 06/27/24 15:27 Years Smoking Packs Smoked per Day Smoking Cessation Date was within the last 15 years Hx Smoking Cessation Date Hx Smoking Cessation Counseling Hematologic Medial History Hematologic Hx - admissions consultant: Hematologic Medical Hx - wirer passenger car Hx of Blood Transfusion No 06/27/24 15:27 Hx of Transfusion in last 3 No 06/27/24 15:27 Months Date of Last Transfusion (if within last 3 months) Ever experience any problems No 06/27/24 15:27 with transfusion(s)? Specify any problems Hx of Preganancy in last 3 N/A 06/27/24 15:27 Months Nurse Filling Out Transfusion NBUCHER 06/27/24 15:27 & Questions: Date: 06/27/24 06/27/24 15:27 Time: 15:27 06/27/24 15:27 Patient unable to answer at this time (ie. confused, unrespo /Reproduction History /Reproductive History - admissions consultant: /Reproductive Hx- admissions consultant Hx Now No 06/27/24 15:27 Gestational Age (in weeks): EDC: Hx Hx Para Hx Section SAB No 06/27/24 15:27 [facility] Medical History Hypothyroid High cholesterol Alcohol use Non-smoker Pelvic pain Wears glasses Wears contact lenses MRSA infection Migraine headache Infertility Heavy menses Hypothyroidism (acquired) Endometriosis Thyroid disease Chronic headaches H/O urinary tract infection Back problem Asthma Seasonal allergies Right ovarian cyst Endometrial thickening on ultra sound Menorrhagia Home Medications ?Medication ?Instructions ?Recorded ?Last Taken ?Type albuterol 90 mcg/actuation aerosol 1 mcg inhalation PRN PRN Wheezing 12/06/19 08/10/22 History inhaler levothyroxine 88 mcg tablet 88 mcg PO DAILY 12/06/19 06/28/24 History (Synthroid) multivitamin 1 tab PO DAILY 07/28/22 Unknown History mometasone-formoterol HFA 100 2 puff inhalation BID PRN 05/09/24 Unknown History mcg-5 mcg/actuation aerosol shortness of breath or wheezing inhaler (Dulera) rosuvastatin 10 mg tablet 10 mg PO QDAY 05/09/24 Unknown History Allergy/AdvReac Type Severity Reaction Status Date / Time No Known Allergies Allergy Verified 06/29/24 05:52 Family History Mother Cancer leukemia Hyperlipidemia Father Hyperlipidemia Surgical History Status post hysterectomy Status post hysterectomy Hx of bilateral salpingectomy History of endometrial ablation History of tubal ligation H/O total cystectomy History of ankle surgery H/O laparoscopy Social History Smoking Status: Never smoker alcohol intake: current substance use type: does not use caffeine: Yes what type of physical activity do you participate in: aerobics and weight training frequency: 5-6 times per week seatbelt use: always do you feel safe at home: Yes additional social history: [place]- Self Employed Patient is currently unemployed Review of Systems (Anesthesia) ROS Narrative System reviewed and no additional complaints, except as documented.
--- NOTE | 2024-06-29 06:35 | PCM.PRE.AN2 ---
ASA Classification* ASA Classification ASA Classification: 2 Assessment & Plan Anesthesia* Anesthesia Assessment Anesthesia Assessment: Discussed sedation and/or anesthesia options, risks, benefits, and alternatives with patient/parents/legal guardian/POA. Questions invited. The patient/parents/legal guardian/POA seems to understand and agrees to proceed with anesthesia plan. Reviewed the physical assessment, medical history, allergy history and patient home medications list prior to surgery/procedure/anesthetic and documented any changes. Performed airway and anesthesia risk assessments. Anesthesia Type Anesthesia Type: MAC Anesthesia Focused Assessment* Temperature: 97.7 F Pulse Rate: 64 Blood Pressure: 120/81 Respiratory Rate: 16 Pulse Ox: 100 Airway Assessment Mouth opens: >3 cm Mallampati Score: II Focused Labs Anesthesia Preop lab: CBC WBC 10.8 K/mm3 (4.4-11.0) 08/04/22 16:03 08/04/22 RBC 5.04 M/mm3 (4.2-5.4) 08/04/22 16:03 08/04/22 Hgb 14.7 g/dL (12.0-15.0) 08/04/22 16:03 08/04/22 Hct 44.0 % (37-47) 08/04/22 16:03 08/04/22 Plt Count 248 K/mm3 (150-450) 08/04/22 16:03 08/04/22 CHEMISTRY Potassium 3.9 mmol/L (3.5-5.1) 04/22/22 13:47 04/22/22 Sodium 137 mmol/L (136-145) 04/22/22 13:47 04/22/22 Magnesium 2.2 mg/dL (1.6-2.6) 08/04/22 16:03 08/04/22 BUN 14 mg/dL (7-18) 04/22/22 13:47 04/22/22 Creatinine 1.06 mg/dL (0.55-1.02) H 04/22/22 13:47 04/22/22 Glucose 96 mg/dL (74-106) 10/03/23 08:28 10/03/23 POC Glucose 96 mg/dL (74-106) 08/10/22 06:27 08/10/22 TSH 2.23 uIU/mL (0.358-3.74) 10/03/23 08:28 10/03/23 COAG PT 12.7 SECONDS (11.7-14.9) 12/21/18 16:25 12/21/18 HCG, Quant < 1 mIU/mL (<9 non-preg) 09/22/17 14:35 09/22/17 Urine Test Negative Negative 08/10/22 05:58 08/10/22 Tst Clinic Negative 06/05/21 14:14 06/05/21 Pre-Assessment Diagnosis/Proposed Procedure Planned Operative Procedure(s): CSCOPE Anesthesia History 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 When Was Last Pacemaker Check QUESTION #4 FULL TEXT: You/Your Family Experience fever (hyperthermia) with Anesthesia Last Oral Intake Last Oral intake: Last Oral Intake NPO since 21:00 06/29/24 05:47 Meds taken in AM with sips of No 06/29/24 05:47 water? 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 Female Yes 06/27/24 15:27 HX of Motion Sickness No 06/27/24 15:27 HX of N/V After Surgery No 06/27/24 15:27 Non-Smoker Yes 06/27/24 15:27 Duration of Surgery greater No 06/27/24 15:27 than 60 minutes Number of Risk Factors 2 06/27/24 15:27 PONV Score Moderate Risk 06/27/24 15:27 Height & Weight Height & Weight: Anesthesia: Height & Weight Height 6 ft 06/29/24 05:47 Weight: 81 kg 06/29/24 05:47 Body Mass Index (BMI) 24.2 06/29/24 05:47 Respiratory Assessment Respiratory Assessment - manufacturing plant technician: Respiratory Tract Infection Hx - manufacturing plant technician Hx Respiratory Tract Infection No 06/27/24 15:27 STOP Sleep Apnea STOP Sleep Apnea - manufacturing plant technician: STOP Sleep Apnea - manufacturing plant technician Hx Hypertension No 06/27/24 15:27 Hx Sleep Apnea No 06/27/24 15:27 CPAP No 08/10/22 09:35 BIPAP No 05/18/22 11:49 Do you snore loudly (louder No 06/27/24 15:27 than talking or can be heard Do you often feel tired/ No 06/27/24 15:27 fatigued/ sleepy during daytime? Has anyone observed you stop No 06/27/24 15:27 breathing during sleep? STOP Results Negative 06/27/24 15:27 QUESTION #5 FULL TEXT : Do you snore loudly (louder than talking or can be heard through closed doors)? 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 Specify any problems Hx of Preganancy in last 3 N/A 06/27/24 15:27 Months Nurse Filling Out Transfusion NBUCHER 06/27/24 15:27 & Questions: Date: 06/27/24 06/27/24 15:27 Time: 15:27 06/27/24 15:27 Patient unable to answer at this time (ie. confused, unrespo /Reproduction History /Reproductive History - manufacturing plant technician: /Reproductive Hx- manufacturing plant technician Hx Now No 06/27/24 15:27 Gestational Age (in weeks): EDC: Hx Hx Para Hx Section SAB No 06/27/24 15:27 PFSH Medical History Hypothyroid High cholesterol Alcohol use Non-smoker Pelvic pain Wears glasses Wears contact lenses MRSA infection Migraine headache Infertility Heavy menses Hypothyroidism (acquired) Endometriosis Thyroid disease Chronic headaches H/O urinary tract infection Back problem Asthma Seasonal allergies Right ovarian cyst Endometrial thickening on ultra sound Menorrhagia Home Medications ?Medication ?Instructions ?Recorded ?Last Taken ?Type albuterol 90 mcg/actuation aerosol 1 mcg inhalation PRN PRN Wheezing 12/06/19 08/10/22 History inhaler levothyroxine 88 mcg tablet 88 mcg PO DAILY 12/06/19 06/28/24 History (Synthroid) multivitamin 1 tab PO DAILY 07/28/22 Unknown History mometasone-formoterol HFA 100 2 puff inhalation BID PRN 05/09/24 Unknown History mcg-5 mcg/actuation aerosol shortness of breath or wheezing inhaler (Dulera) rosuvastatin 10 mg tablet 10 mg PO QDAY 05/09/24 Unknown History Allergy/AdvReac Type Severity Reaction Status Date / Time No Known Allergies Allergy Verified 06/29/24 05:52 Family History Mother Cancer leukemia Hyperlipidemia Father Hyperlipidemia Surgical History Status post hysterectomy Status post hysterectomy Hx of bilateral salpingectomy History of endometrial ablation History of tubal ligation H/O total cystectomy History of ankle surgery H/O laparoscopy Social History Smoking Status: Never smoker alcohol intake: current substance use type: does not use caffeine: Yes what type of physical activity do you participate in: aerobics and weight training frequency: 5-6 times per week seatbelt use: always do you feel safe at home: Yes additional social history: [employer]- Self Employed Patient is currently unemployed Review of Systems (Anesthesia) ROS Narrative System reviewed and no additional complaints, except as documented.
--- NOTE | 2024-06-29 06:59 | HP.PCM_ITS ---
HPI - General General Date of Admission: 06/29/24 Date of Service: 06/29/24 Chief Complaint: Bloating and constipation HPI Narrative SELENE BAIRES, is a 43 F who presents for colonoscopy today to evaluate bloating and constipation. - bloating, gas - Miralax PRN - alternating constipation and diarrhea for many years - more issues the past year - currently more loose stools - tri mag since January 2024 and more recently started magnesium citrate one month ago - prior to Tri Mag was on Miralax PRN - stools were smaller in caliber worms - there were days she was missing BM - with starting TriMag she started having a BM every day but stools are like mud - bloating did improve - Mag Citrate added one a day recently and denies any real change - denies any weight loss - denies any bleeding - denies any ABD pain - denies any family h/o colon CA - upper abdominal discomfort - typically after dinner - feels very full and like food just sits there - denies any N/V - denies any HB - thinks she had an endoscopy many years ago at [facility] B: oatmeal or oat bran muffins or egg bowl, or protein shake L: salad and fruit, cheese stick and yogurt D: protein, vegetable and starch - water intake is 32-96 ounces a day - non-smoker - denies EtOH use - Celsius daily - caffeine - once weekly NSAID use - denies taking any fiber supplement [facility] Medical History Hypothyroid High cholesterol Alcohol use Non-smoker Pelvic pain Wears glasses Wears contact lenses MRSA infection Migraine headache Infertility Heavy menses Hypothyroidism (acquired) Endometriosis Thyroid disease Chronic headaches H/O urinary tract infection Back problem Asthma Seasonal allergies Right ovarian cyst Endometrial thickening on ultra sound Menorrhagia Home Medications ?Medication ?Instructions ?Recorded ?Last Taken ?Type albuterol 90 mcg/actuation aerosol 1 mcg inhalation [place] N PRN Wheezing 12/06/19 08/10/22 History inhaler levothyroxine 88 mcg tablet 88 mcg PO DAILY 12/06/19 0 06/28/24 History (Synthroid) multivitamin 1 tab PO DAILY 07/28/22 Unkn own History mometasone-formoterol HFA 100 2 puff inhalation BID [place] N 05/09/24 Unknown History mcg-5 mcg/actuation aerosol shortness of breath or whe ezing inhaler (Dulera) rosuvastatin 10 mg tablet 10 mg PO QDAY 05/09/24 Unkno wn History Allergy/AdvReac Type Severity Reaction Status Date / Time No Known Allergies Allergy Verified 06/29/24 05:52 Family History Mother Cancer leukemia Hyperlipidemia Father Hyperlipidemia Surgical History Status post hysterectomy Status post hysterectomy Hx of bilateral salpingectomy History of endometrial ablation History of tubal ligation H/O total cystectomy History of ankle surgery H/O laparoscopy Social History Smoking Status: Never smoker alcohol intake: current substance use type: does not use caffeine: Yes what type of physical activity do you participate in: aerobics and weight training frequency: 5-6 times per week seatbelt use: always do you feel safe at home: Yes additional social history: [employer]- Self Employed Patient is currently unemployed ROS Constitutional Constitutional: Denies fatigue, fever(s), poor appetite, weight gain or weight loss Gastrointestinal Gastrointestinal: Denies belching, bloating, change in bowel habits, change in stool character, chewing difficulty, coffee ground emesis, constipation, cramping, diarrhea, dyspepsia, dysphagia, early satiety, excessive flatus, fecal incontinence, heartburn, hematemesis, hematochezia, hemorrhoids, loose stools, melena, nausea, odynophagia, rectal bleeding, tenesmus, vomiting or weight changes Vital Signs Vital Signs Vital Signs: 06/29/24 05:47 06/29/24 05:47 06/29/24 06:28 Temperature 97.7 F L 97.7 F L Temperature Source Temporal Pulse Rate 64 64 Respiratory Rate 16 16 Respiratory Pattern Normal Blood Pressure 120/81 H 120/81 H Blood Pressure Mean 94 Blood Pressure Source Monitor Blood Pressure Position Semi-Fowlers Blood Pressure Location Left Arm Pulse Ox 100 100 Oxygen Delivery Method Room Air Room Air 06/29/24 06:35 Temperature 97.7 F L Temperature Source Pulse Rate 64 Respiratory Rate 16 Respiratory Pattern Blood Pressure 120/81 H Blood Pressure Mean Blood Pressure Source Blood Pressure Position Blood Pressure Location Pulse Ox 100 Oxygen Delivery Method Weight Weight: 178 lb 9.191 oz Body Mass Index (BMI) 24.2 Physical Exam Const alert, oriented x3, no apparent distress and healthy appearing General Appearance: cooperative GI normal to inspection, nondistended, normoactive bowel sounds, soft to palpation, non-tender and non-distended Percussion: normal to percussion Rectal Exam: deferred Assessment & Plan Assessment/Plan (1) Bloating: (2) Constipation: QUALIFIERS: Constipation type: unspecified constipation type Qualified Code(s): K59.00 - Constipation, unspecified PLAN: Assessment and Plan Assessment and Plan (1) Abdominal symptoms: (2) Constipation: Status: Acute Qualifiers: Constipation type: unspecified constipation type Qualified Code(s): K59.00 - Constipation, unspecified (3) Bloating: Status: Acute Plan 43y/o female presents for consultation with a change in bowel habits. She reports a long history of alternating constipation and diarrhea. Symptoms worsened over the past several months with an increase in constipation, generalized abdominal discomfort and bloating. She has added magnesium supplements which have increased frequency of stools and reduced bloating. She reports her stools are now like mud and she does not feel she is fully eliminating. I have recommended a high fiber diet with the addition of FiberCon tablets and recommended she start a daily probiotic. She will schedule colonoscopy and follow-up in the office post procedure. Patient Instructions: 1. Start FiberCon 2 tablets once daily with 8 ounces of water, take in the mor yecenia 2. Start a daily probiotic (Align, Culturelle or Activation Life) 3. Okay, to continue magnesium supplements at , will assess symptoms in 3 weeks with the addition of fiber and probiotic 4. Colonoscopy 5. Increase water intake 6. Follow-up in office post procedure Plan Details Follow Up: 6 Weeks
--- NOTE | 2024-06-29 07:29 | OP.COLON_ITS ---
Patient Name: Darline Randle Procedure Date: 06/29/2024 6:36 AM Date of : 1980 Age: 43 Procedure: Colonoscopy Indications: Generalized abdominal pain, Change in stool caliber, Incidental change in bowel habits noted Providers: Ad Lainez DO Medicines: Monitored Anesthesia Care Patient Profile: This is a 43 year old female. Refer to note in patient chart for documentation of history and physical. Last Colonoscopy: none. The patient's first colonoscopy is today. Complications: No immediate complications. Procedure: Pre-Anesthesia Assessment: - Prior to the procedure, a History and Physical was performed, and patient medications and allergies were reviewed. The patient is competent. The risks and benefits of the procedure and the sedation options and risks were discussed with the patient. All questions were answered and informed consent was obtained. Patient identification and proposed procedure were verified by the physician in the pre-procedure area. Mental Status Examination: alert and oriented. Airway Examination: normal oropharyngeal airway and neck mobility. Respiratory Examination: clear to auscultation. CV Examination: normal. ASA Grade Assessment: II - A patient with mild systemic disease. After reviewing the risks and benefits, the patient was deemed in satisfactory condition to undergo the procedure. The anesthesia plan was to use monitored anesthesia care (MAC). Immediately prior to administration of medications, the patient was re-assessed for adequacy to receive sedatives. The heart rate, respiratory rate, oxygen saturations, blood pressure, adequacy of pulmonary ventilation, and response to care were monitored throughout the procedure. The physical status of the patient was re-assessed after the procedure. After I obtained informed consent, the scope was passed under direct vision. Throughout the procedure, the patient's blood pressure, pulse, and oxygen saturations were monitored continuously. The Colonoscope was introduced through the anus and advanced to the terminal ileum. The colonoscopy was performed without difficulty. The patient tolerated the procedure well. The quality of the bowel preparation was adequate. The terminal ileum, ileocecal valve, appendiceal orifice, and rectum were photographed. Scope In: 7:13:20 AM Scope Withdrawal Time 0 hours 6 minutes 18 seconds Scope Out: 7:23:58 AM Total Procedure Duration Time 0 hours 10 minutes 38 seconds Findings: The perianal and digital rectal examinations were normal. The colon (entire examined portion) appeared normal. The terminal ileum appeared normal. Impression: - The entire examined colon is normal. - The examined portion of the ileum was normal. - No specimens collected. Recommendation: - Discharge patient to home. - Resume previous diet. - Continue present medications. - Repeat colonoscopy in 10 years for screening purposes. Procedure Code(s): --- Professional --- 44988, Colonoscopy, flexible; diagnostic, including collection of specimen(s) by brushing or washing, when performed (separate procedure) CPT copyright 2021 [employer]. All rights reserved. The codes documented in this report are preliminary and upon program arranger review may be revised to meet current compliance requirements. Ad Lainez DO 06/29/2024 7:28:14 AM This report has been signed electronically. Number of Addenda: 0 Note Initiated On: 06/29/2024 6:36 AM
--- NOTE | 2024-06-29 07:29 | OP.CCLET_ITS ---
06/29/2024 Bao Vazquez [address] [place] [address] Re : Colonoscopy procedure for Darline Randle Dear Dr. Vazquez This procedure was performed on Saturday, June 29, 2024. My impressions and recommendations are as follows: Impressions : - The entire examined colon is normal. - The examined portion of the ileum was normal. - No specimens collected. Recommendations : - Discharge patient to home. - Resume previous diet. - Continue present medications. - Repeat colonoscopy in 10 years for screening purposes. My findings are described in the full procedure note, which is enclosed. If I can be of further assistance, please feel free to contact me at . Sincerely, Ad Lainez, 06/29/2024 7:28:14 AM This report has been signed electronically.
--- NOTE | 2024-06-29 07:31 | PCM.POST.ANE ---
Anesthesia: Postop Eval I Current Vital Signs Temperature: 98.4 F Pulse Rate: 62 Blood Pressure: 104/66 Respiratory Rate: 16 Pulse Ox: 99 Oxygen Delivery Method: Room Air Assessment Airway patent: Yes Spontaneous unlabored respirations: Yes Mental status: Awake and Calm nausea: No Vomiting: No Anesthesia Complication: No Fluid Hydration Crystalloid volume administer (ml): 40 Total IV fluid infused: 40 Progress Note Anesthesia document: Postop Eval 1 completed: Yes
--- NOTE | 2024-06-29 08:52 | PCM.POSTANE2 ---
Anesthesia Postop Eval I Sum Postop Eval Completion status Anesthesia document: Postop Eval 1 completed: Yes Anesthesia Postop Eval I Summary Anesthesia Postop Eval I Summary: Anesthesia Postop Eval I: Assessment Summary Airway patent Yes 06/29/24 07:32 [email or web address] Spontaneous unlabored Yes 06/29/24 07:32 [email or web address] respirations Mental status Awake,Calm 06/29/24 07:32 [email or web address] nausea No 06/29/24 07:32 [email or web address] Vomiting No 06/29/24 07:32 [email or web address] Anesthesia Postop Eval I: Fluid Summary Crystalloid volume administer 40 06/29/24 07:32 [email or web address] (ml) Colloids volume administered ( ml) Blood Product volume administered (ml) Total IV fluid infused 40 06/29/24 07:32 [email or web address] Anesthesia Postop Eval I: Summary Notes Anesthesia Complication No 06/29/24 07:32 [email or web address] Anesthesia Complication Comment: Post-operative progress note Anesthesia: Postop Eval II Evaluation Mental status: Awake Pain Level: 0 nausea: No Vomiting: No
== END 2024-06-29 07:56 | disposition home or self-care (01) ==
LOC: EN 05:27 → AC 05:28
PROVIDERS: PCP Family Medicine; Referring Provider Family Medicine; Visit Provider Internal Medicine Gastroenterology
PROC: 0DJD8ZZ Inspection of Lower Intestinal Tract, Via Natural or Artificial Opening Endoscopic (ICD-10-PCS; CPT 45378; principal; 2024-06-29 06:25)
DX: K59.00 Constipation, unspecified (principal); R19.7 Diarrhea, unspecified; E78.00 Pure hypercholesterolemia, unspecified; R14.0 Abdominal distension (gaseous); E03.9 Hypothyroidism, unspecified; Z79.899 Other long term (current) drug therapy
CPT/HCPCS: 45378; A4216; J2405

== ENCOUNTER → 2024-10-17 | Outpatient (CLI) | payer OTHER, SELFPAY ==
[2024-10-17 13:47] LABS: Vitamin B12 799 pg/mL (180-914); Vitamin D,25 Hydroxy 54.8 ng/mL (30-100)
== END | disposition home or self-care (01) ==
LOC: MTLAB 09:50
PROVIDERS: PCP Family Medicine; Referring Provider Family Medicine; Visit Provider Family Medicine
DX: R53.82 Chronic fatigue, unspecified (principal); R20.0 Anesthesia of skin; R20.2 Paresthesia of skin
CPT/HCPCS: 36415; 82306; 82607; 84439; 84443